=== PATIENT | female | born 1940 | race Caucasian/White ===

== ENCOUNTER 2017-04-10 20:02 | Emergency (ER) | payer MEDICARE, OTHER ==
[2017-04-10 21:48] LABS: BASOPHILS 0.3 % (0-2); EOSINOPHILS 0.3 % (0-7); HEMATOCRIT 43.6 % (36.0-48.0); HEMOGLOBIN 14.5 g/dL (12-16); IMMATURE GRANULOCYTES 0.3 % (0-5); LYMPHOCYTES 19.9 % (15-50); MCHC 33.3 g/dL (31.0-37.0); MCV 93.4 fL (80.0-100.0); MEAN PLATELET VOLUME 11.4 fL (7.4-10.4); MONOCYTES 8.6 % (2-11); NEUTROPHILS 70.6 % (40-80); PLATELET COUNT 169 10x3/uL (130-400); RBC 4.67 10x6/uL (4.00-5.40); RDW 11.8 % (11.5-14.5); WBC 7.4 10x3/uL (4.8-10.8)
[2017-04-10 22:01] LABS: ALBUMIN 3.6 g/dL (3.4-5.0); ANION GAP 15.5 mmol/L (8-16); BILIRUBIN - TOTAL 1.04 mg/dL (0.2-1.3); CALCIUM 9.5 mg/dL (8.5-10.1); CARBON DIOXIDE 25.8 mmol/L (21.0-32.0); CREATININE - SERUM 0.8 mg/dL (0.6-1.3); POTASSIUM - SERUM 3.3 mmol/L (3.5-5.1); PROTEIN - SERUM 7.3 g/dL (6.4-8.2)
[2017-05-12 11:09] VITALS: BMI 38.6
== END 2017-04-11 00:25 | disposition home or self-care (01) ==
LOC: D.ER 20:02
PROVIDERS: Emergency Medicine
DX: R11.10 Vomiting, unspecified (principal); R63.4 Abnormal weight loss; E87.6 Hypokalemia; E86.0 Dehydration

== ENCOUNTER 2017-04-21 08:51 | Inpatient (IN) | payer MEDICARE, OTHER ==
[~2017-04-21] VITALS: Ht 162.6 cm; Wt 119.2 kg
[2017-04-21 11:03] LABS: BASOPHILS 0.2 % (0-2); EOSINOPHILS 0.1 % (0-7); HEMATOCRIT 43.9 % (36.0-48.0); HEMOGLOBIN 14.8 g/dL (12-16); IMMATURE GRANULOCYTES 0.5 % (0-5); MCHC 33.7 g/dL (31.0-37.0); MEAN PLATELET VOLUME 10.8 fL (7.4-10.4); MONOCYTES 7.3 % (2-11); NEUTROPHILS 77.9 % (40-80); PLATELET COUNT 198 10x3/uL (130-400); RBC 4.77 10x6/uL (4.00-5.40); WBC 12.7 10x3/uL (4.8-10.8)
[2017-04-21 11:27] LABS: ALBUMIN 3.6 g/dL (3.4-5.0); ANION GAP 22.1 mmol/L (8-16); BILIRUBIN - TOTAL 1.19 mg/dL (0.2-1.3); CALCIUM 10.3 mg/dL (8.5-10.1); CARBON DIOXIDE 23.9 mmol/L (21.0-32.0); CREATININE - SERUM 0.9 mg/dL (0.6-1.3); PROTEIN - SERUM 7.8 g/dL (6.4-8.2)
[2017-04-21 14:39] LABS: APPEARANCE HAZY (CLEAR); BILIRUBIN NEGATIVE (NEGATIVE); COLOR YELLOW (YELLOW); GLUCOSE NEGATIVE (NEGATIVE); KETONE LARGE mg/dL (NEGATIVE); NITRITE NEGATIVE (NEGATIVE); PROTEIN NEGATIVE (NEGATIVE)
[2017-04-21 14:41] LABS: WHITE CELLS - URINE 0-5 /hpf (0-5)
[2017-04-21 14:42] LABS: BACTERIA MODERATE /hpf (NONE SEEN); RED CELLS - URINE NONE SEEN /hpf (0-5)
[2017-04-21 19:20] LABS: % SATURATION 22 % (15-55); IRON 50 ug/dl (35-150); TOTAL IRON BIND CAPACITY 224 ug/dl (260-445); UNSAT IRON BIND CAPACITY 174 ug/dl (150-375)
[2017-04-21 20:00] VITALS: BP 120/60
[2017-04-22] VITALS: BP 123/65
[2017-04-22 04:00] VITALS: BP 119/54
[2017-04-22 05:38] LABS: BASOPHILS 0.3 % (0-2); EOSINOPHILS 0.8 % (0-7); HEMATOCRIT 37.4 % (36.0-48.0); HEMOGLOBIN 12.3 g/dL (12-16); IMMATURE GRANULOCYTES 0.2 % (0-5); LYMPHOCYTES 32.1 % (15-50); MCH 30.8 pg (26.0-34.0); MCHC 32.9 g/dL (31.0-37.0); MCV 93.5 fL (80.0-100.0); MEAN PLATELET VOLUME 11.7 fL (7.4-10.4); MONOCYTES 10.1 % (2-11); NEUTROPHILS 56.5 % (40-80); RDW 12.1 % (11.5-14.5)
[2017-04-22 05:39] LABS: PLATELET COUNT 147 10x3/uL (130-400); WBC 5.9 10x3/uL (4.8-10.8)
[2017-04-22 05:41] LABS: INR 1.03 (0.85-1.17); PROTIME 13.3 SECONDS (11.6-15.0)
[2017-04-22 05:44] LABS: ALBUMIN 2.8 g/dL (3.4-5.0); ALKALINE PHOSPHATASE 68 U/L (46-116); ALT (SGPT) 26 U/L (10-68); AMYLASE - SERUM 19 U/L (25-115); CALC OSMOLALITY 270 mosm/kg (275-300); CALCIUM 8.5 mg/dL (8.5-10.1); CHLORIDE - SERUM 99 mmol/L (98-107); CREATININE - SERUM 0.7 mg/dL (0.6-1.3); GLUCOSE 77 mg/dL (74-106); LIPASE 89 U/L (73-393); PRE-ALBUMIN 11.2 mg/dL (18.0-35.7); PROTEIN - SERUM 5.9 g/dL (6.4-8.2); SODIUM 135 mmol/L (136-145); UREA NITROGEN 18 mg/dL (7-18); eGFR NON AFRICAN AMERICAN 86 mL/min (90-120)
[2017-04-22 05:53] LABS: POTASSIUM - SERUM 3.1 mmol/L (3.5-5.1)
[2017-04-22 08:16] VITALS: BP 129/70
[2017-04-22 12:33] VITALS: BP 144/84
[2017-04-22 14:18] VITALS: BMI 29.8
[2017-04-22 15:35] VITALS: BP 145/67
[2017-04-22 20:00] VITALS: BP 181/64
[2017-04-23] VITALS: BP 123/67
[2017-04-23 04:00] VITALS: BP 147/72
[2017-04-23 06:58] LABS: BASOPHILS 0.2 % (0-2); EOSINOPHILS 1.4 % (0-7); HEMATOCRIT 37.9 % (36.0-48.0); HEMOGLOBIN 12.5 g/dL (12-16); IMMATURE GRANULOCYTES 0.4 % (0-5); MCH 30.4 pg (26.0-34.0); MCV 92.2 fL (80.0-100.0); MONOCYTES 10.3 % (2-11); NEUTROPHILS 57.7 % (40-80); PLATELET COUNT 154 10x3/uL (130-400); RBC 4.11 10x6/uL (4.00-5.40); WBC 5.2 10x3/uL (4.8-10.8)
[2017-04-23 07:17] LABS: ALBUMIN 2.7 g/dL (3.4-5.0); ALKALINE PHOSPHATASE 69 U/L (46-116); ALT (SGPT) 24 U/L (10-68); BILIRUBIN - TOTAL 0.47 mg/dL (0.2-1.3); CALCIUM 8.2 mg/dL (8.5-10.1); CHLORIDE - SERUM 97 mmol/L (98-107); PROTEIN - SERUM 5.4 g/dL (6.4-8.2); SODIUM 133 mmol/L (136-145)
[2017-04-23 07:20] LABS: CALC OSMOLALITY 261 mosm/kg (275-300); CREATININE - SERUM 0.5 mg/dL (0.6-1.3); GLUCOSE 70 mg/dL (74-106); POTASSIUM - SERUM 3.5 mmol/L (3.5-5.1); UREA NITROGEN 8 mg/dL (7-18); eGFR NON AFRICAN AMERICAN > 90 mL/min (90-120)
[2017-04-23 08:00] VITALS: BP 142/74
[2017-04-23 08:21] LABS: FOLATE (FOLIC ACID) - SERUM 10.8 ng/mL (>3.0)
[2017-04-23 12:29] VITALS: BP 128/63
[2017-04-23 16:13] VITALS: BP 140/64
[2017-04-23 18:49] VITALS: BP 122/74
[2017-04-24 04:00] VITALS: BP 122/72
[2017-04-24 05:11] VITALS: BP 140/64; Ht 162.6 cm; Wt 119.2 kg
[2017-04-24 06:22] LABS: BASOPHILS 0.2 % (0-2); EOSINOPHILS 0.3 % (0-7); HEMATOCRIT 37.2 % (36.0-48.0); HEMOGLOBIN 12.5 g/dL (12-16); IMMATURE GRANULOCYTES 0.3 % (0-5); LYMPHOCYTES 16.6 % (15-50); MCH 30.8 pg (26.0-34.0); MCHC 33.6 g/dL (31.0-37.0); MCV 91.6 fL (80.0-100.0); MEAN PLATELET VOLUME 11.1 fL (7.4-10.4); MONOCYTES 11.7 % (2-11); NEUTROPHILS 70.9 % (40-80); PLATELET COUNT 160 10x3/uL (130-400); RBC 4.06 10x6/uL (4.00-5.40); WBC 5.8 10x3/uL (4.8-10.8)
[2017-04-24 06:31] LABS: ALBUMIN 2.5 g/dL (3.4-5.0); ALKALINE PHOSPHATASE 60 U/L (46-116); ALT (SGPT) 22 U/L (10-68); CALCIUM 8.4 mg/dL (8.5-10.1); CARBON DIOXIDE 24.6 mmol/L (21.0-32.0); CHLORIDE - SERUM 98 mmol/L (98-107); CREATININE - SERUM 0.6 mg/dL (0.6-1.3); GLUCOSE 79 mg/dL (74-106); MAGNESIUM - SERUM 1.6 mg/dL (1.8-2.4); PHOSPHOROUS 3.4 mg/dL (2.5-4.9); PROTEIN - SERUM 5.5 g/dL (6.4-8.2); SODIUM 136 mmol/L (136-145); eGFR NON AFRICAN AMERICAN > 90 mL/min (90-120)
[2017-04-24 06:32] LABS: CALC OSMOLALITY 267 mosm/kg (275-300); UREA NITROGEN 4 mg/dL (7-18)
[2017-04-24 09:38] VITALS: BP 134/71
[2017-04-24 11:52] VITALS: BP 123/71
[2017-04-24 16:41] VITALS: BP 147/85
[2017-04-24 20:00] VITALS: BP 144/72
[2017-04-25] VITALS: BP 118/72; BP 137/68
[2017-04-25 06:02] LABS: ALBUMIN 2.4 g/dL (3.4-5.0); ALKALINE PHOSPHATASE 59 U/L (46-116); BILIRUBIN - TOTAL 0.31 mg/dL (0.2-1.3); CALC OSMOLALITY 270 mosm/kg (275-300); CALCIUM 8.1 mg/dL (8.5-10.1); CHLORIDE - SERUM 100 mmol/L (98-107); CREATININE - SERUM 0.6 mg/dL (0.6-1.3); GLUCOSE 105 mg/dL (74-106); MAGNESIUM - SERUM 1.9 mg/dL (1.8-2.4); PROTEIN - SERUM 5.4 g/dL (6.4-8.2); SODIUM 137 mmol/L (136-145); UREA NITROGEN 4 mg/dL (7-18); eGFR NON AFRICAN AMERICAN > 90 mL/min (90-120)
[2017-04-25 06:03] LABS: ALT (SGPT) 7 U/L (10-68); PHOSPHOROUS 2.4 mg/dL (2.5-4.9)
[2017-04-25 06:16] LABS: BASOPHILS 0.1 % (0-2); EOSINOPHILS 1.6 % (0-7); HEMATOCRIT 34.8 % (36.0-48.0); HEMOGLOBIN 11.6 g/dL (12-16); IMMATURE GRANULOCYTES 0.4 % (0-5); LYMPHOCYTES 26.6 % (15-50); MCH 30.4 pg (26.0-34.0); MCHC 33.3 g/dL (31.0-37.0); MCV 91.1 fL (80.0-100.0); MEAN PLATELET VOLUME 11.1 fL (7.4-10.4); MONOCYTES 11.2 % (2-11); NEUTROPHILS 60.1 % (40-80); PLATELET COUNT 146 10x3/uL (130-400); RBC 3.82 10x6/uL (4.00-5.40); RDW 12.1 % (11.5-14.5); WBC 6.8 10x3/uL (4.8-10.8)
[2017-04-25 09:02] VITALS: BP 102/55
[2017-04-25 12:19] VITALS: BP 110/62
[2017-04-25 16:42] VITALS: BP 122/56
[2017-04-25 20:00] VITALS: BP 142/62
[2017-04-26] VITALS: BP 150/64
[2017-04-26 04:00] VITALS: BP 144/60
[2017-04-26 05:15] LABS: BASOPHILS 0.2 % (0-2); EOSINOPHILS 2.2 % (0-7); HEMATOCRIT 34.6 % (36.0-48.0); HEMOGLOBIN 11.5 g/dL (12-16); IMMATURE GRANULOCYTES 0.4 % (0-5); LYMPHOCYTES 30.3 % (15-50); MCH 30.5 pg (26.0-34.0); MCHC 33.2 g/dL (31.0-37.0); MCV 91.8 fL (80.0-100.0); MEAN PLATELET VOLUME 10.4 fL (7.4-10.4); NEUTROPHILS 52.9 % (40-80); PLATELET COUNT 130 10x3/uL (130-400); RBC 3.77 10x6/uL (4.00-5.40); RDW 12.2 % (11.5-14.5); WBC 5.4 10x3/uL (4.8-10.8)
[2017-04-26 05:59] LABS: ALBUMIN 2.2 g/dL (3.4-5.0); ALKALINE PHOSPHATASE 53 U/L (46-116); BILIRUBIN - TOTAL 0.21 mg/dL (0.2-1.3); CALC OSMOLALITY 274 mosm/kg (275-300); CALCIUM 7.9 mg/dL (8.5-10.1); CARBON DIOXIDE 30.5 mmol/L (21.0-32.0); CHLORIDE - SERUM 103 mmol/L (98-107); CREATININE - SERUM 0.6 mg/dL (0.6-1.3); GLUCOSE 98 mg/dL (74-106); MAGNESIUM - SERUM 1.5 mg/dL (1.8-2.4); POTASSIUM - SERUM 3.2 mmol/L (3.5-5.1); SODIUM 139 mmol/L (136-145); UREA NITROGEN 4 mg/dL (7-18); eGFR NON AFRICAN AMERICAN > 90 mL/min (90-120)
[2017-04-26 06:02] LABS: ALT (SGPT) 16 U/L (10-68)
[2017-04-26 08:28] VITALS: BP 142/82
[2017-04-26 13:18] VITALS: BP 160/83
[2017-04-26 15:18] VITALS: BP 146/82
[2017-04-27] VITALS: BP 112/67
[2017-04-27 04:00] VITALS: BP 120/68
[2017-04-27 06:14] LABS: HEPATITIS C ANTIBODY <0.1 (0.0-0.9)
[2017-04-27 07:00] LABS: BASOPHILS 0.4 % (0-2); EOSINOPHILS 2.1 % (0-7); HEMOGLOBIN 11.2 g/dL (12-16); IMMATURE GRANULOCYTES 0.7 % (0-5); LYMPHOCYTES 29.3 % (15-50); MCH 30.6 pg (26.0-34.0); MCHC 32.9 g/dL (31.0-37.0); MCV 92.9 fL (80.0-100.0); MEAN PLATELET VOLUME 10.8 fL (7.4-10.4); NEUTROPHILS 53.5 % (40-80); PLATELET COUNT 144 10x3/uL (130-400); RBC 3.66 10x6/uL (4.00-5.40); RDW 12.3 % (11.5-14.5); WBC 5.6 10x3/uL (4.8-10.8)
[2017-04-27 07:29] LABS: ALBUMIN 2.3 g/dL (3.4-5.0); ALKALINE PHOSPHATASE 57 U/L (46-116); BILIRUBIN - TOTAL 0.22 mg/dL (0.2-1.3); CARBON DIOXIDE 29.7 mmol/L (21.0-32.0); CHLORIDE - SERUM 104 mmol/L (98-107); CREATININE - SERUM 0.7 mg/dL (0.6-1.3); GLUCOSE 94 mg/dL (74-106); MAGNESIUM - SERUM 1.8 mg/dL (1.8-2.4); PHOSPHOROUS 3.1 mg/dL (2.5-4.9); PROTEIN - SERUM 5.1 g/dL (6.4-8.2); SODIUM 138 mmol/L (136-145); eGFR NON AFRICAN AMERICAN 86 mL/min (90-120)
[2017-04-27 07:43] LABS: ALT (SGPT) 24 U/L (10-68); CALC OSMOLALITY 273 mosm/kg (275-300); POTASSIUM - SERUM 3.7 mmol/L (3.5-5.1); UREA NITROGEN 6 mg/dL (7-18)
[2017-04-27 09:38] VITALS: BP 121/75
[2017-04-27 13:11] VITALS: BP 128/73
[2017-04-27 16:23] VITALS: BP 141/77
[2017-04-28] VITALS (65 sets, daily range): BP systolic 59–166; BP diastolic 27–98
[2017-04-28 03:49] LABS: BASOPHILS 0.2 % (0-2); EOSINOPHILS 0.3 % (0-7); HEMATOCRIT 37.3 % (36.0-48.0); HEMOGLOBIN 12.4 g/dL (12-16); IMMATURE GRANULOCYTES 0.3 % (0-5); LYMPHOCYTES 13.3 % (15-50); MCH 30.4 pg (26.0-34.0); MCHC 33.2 g/dL (31.0-37.0); MCV 91.4 fL (80.0-100.0); MEAN PLATELET VOLUME 10.9 fL (7.4-10.4); MONOCYTES 2.9 % (2-11); PLATELET COUNT 160 10x3/uL (130-400); RBC 4.08 10x6/uL (4.00-5.40); RDW 14.1 % (11.5-14.5); WBC 6.6 10x3/uL (4.8-10.8)
[2017-04-28 04:16] LABS: CALCIUM 7.8 mg/dL (8.5-10.1); CHLORIDE - SERUM 102 mmol/L (98-107); CREATININE - SERUM 0.7 mg/dL (0.6-1.3); PHOSPHOROUS 3.3 mg/dL (2.5-4.9); SODIUM 137 mmol/L (136-145); UREA NITROGEN 7 mg/dL (7-18); eGFR NON AFRICAN AMERICAN 86 mL/min (90-120)
[2017-04-28 04:17] LABS: CALC OSMOLALITY 282 mosm/kg (275-300); GLUCOSE 301 mg/dL (74-106); MAGNESIUM - SERUM 1.2 mg/dL (1.8-2.4)
[2017-04-28 04:18] LABS: CARBON DIOXIDE 20.5 mmol/L (21.0-32.0); POTASSIUM - SERUM 2.8 mmol/L (3.5-5.1)
[2017-04-28 14:43] LABS: BASOPHILS 0.3 % (0-2); EOSINOPHILS 0.3 % (0-7); HEMATOCRIT 33.1 % (36.0-48.0); IMMATURE GRANULOCYTES 0.3 % (0-5); LYMPHOCYTES 11.4 % (15-50); MCH 30.2 pg (26.0-34.0); MCHC 33.2 g/dL (31.0-37.0); MCV 90.9 fL (80.0-100.0); MEAN PLATELET VOLUME 11.1 fL (7.4-10.4); NEUTROPHILS 77.7 % (40-80); PLATELET COUNT 188 10x3/uL (130-400); RBC 3.64 10x6/uL (4.00-5.40); RDW 15.1 % (11.5-14.5); WBC 6.4 10x3/uL (4.8-10.8)
[2017-04-29] VITALS (88 sets, daily range): BP systolic 63–120; BP diastolic 39–523
[2017-04-29 03:36] LABS: BASOPHILS 0.2 % (0-2); EOSINOPHILS 1.1 % (0-7); HEMATOCRIT 33.3 % (36.0-48.0); HEMOGLOBIN 11.1 g/dL (12-16); IMMATURE GRANULOCYTES 0.4 % (0-5); LYMPHOCYTES 18.5 % (15-50); MCH 30.5 pg (26.0-34.0); MCHC 33.3 g/dL (31.0-37.0); MCV 91.5 fL (80.0-100.0); MEAN PLATELET VOLUME 10.7 fL (7.4-10.4); MONOCYTES 13.8 % (2-11); PLATELET COUNT 171 10x3/uL (130-400); RBC 3.64 10x6/uL (4.00-5.40); RDW 14.8 % (11.5-14.5)
[2017-04-29 03:41] LABS: WBC 9.5 10x3/uL (4.8-10.8)
[2017-04-29 03:46] LABS: ALBUMIN 2.3 g/dL (3.4-5.0); ANION GAP 11.2 mmol/L (8-16); BILIRUBIN - TOTAL 0.99 mg/dL (0.2-1.3); CALCIUM 7.4 mg/dL (8.5-10.1); CARBON DIOXIDE 22.8 mmol/L (21.0-32.0); MAGNESIUM - SERUM 1.4 mg/dL (1.8-2.4); PROTEIN - SERUM 4.7 g/dL (6.4-8.2)
[2017-04-29 03:49] LABS: CREATININE - SERUM 0.9 mg/dL (0.6-1.3)
[2017-04-30] VITALS (86 sets, daily range): BP systolic 56–172; BP diastolic 25–131
[2017-04-30 04:37] LABS: BASOPHILS 0.1 % (0-2); EOSINOPHILS 1.7 % (0-7); HEMOGLOBIN 9.3 g/dL (12-16); IMMATURE GRANULOCYTES 0.5 % (0-5); LYMPHOCYTES 14.9 % (15-50); MCH 30.3 pg (26.0-34.0); MCHC 33.2 g/dL (31.0-37.0); MCV 91.2 fL (80.0-100.0); MEAN PLATELET VOLUME 10.7 fL (7.4-10.4); MONOCYTES 11.9 % (2-11); NEUTROPHILS 70.9 % (40-80); PLATELET COUNT 141 10x3/uL (130-400); RBC 3.07 10x6/uL (4.00-5.40); RDW 14.3 % (11.5-14.5); WBC 7.7 10x3/uL (4.8-10.8)
[2017-04-30 04:48] LABS: ALBUMIN 1.9 g/dL (3.4-5.0); ALKALINE PHOSPHATASE 47 U/L (46-116); ALT (SGPT) 27 U/L (10-68); BILIRUBIN - TOTAL 0.78 mg/dL (0.2-1.3); CALC OSMOLALITY 272 mosm/kg (275-300); CALCIUM 7.3 mg/dL (8.5-10.1); CARBON DIOXIDE 22.6 mmol/L (21.0-32.0); CHLORIDE - SERUM 105 mmol/L (98-107); CREATININE - SERUM 0.7 mg/dL (0.6-1.3); GLUCOSE 134 mg/dL (74-106); PHOSPHOROUS 2.3 mg/dL (2.5-4.9); POTASSIUM - SERUM 4.3 mmol/L (3.5-5.1); PROTEIN - SERUM 4.4 g/dL (6.4-8.2); SODIUM 135 mmol/L (136-145); UREA NITROGEN 15 mg/dL (7-18); eGFR NON AFRICAN AMERICAN 86 mL/min (90-120)
[2017-04-30 04:50] LABS: MAGNESIUM - SERUM 1.9 mg/dL (1.8-2.4)
[2017-05-01] VITALS (93 sets, daily range): BP systolic 84–134; BP diastolic 38–94
[2017-05-01 04:41] LABS: BASOPHILS 0.1 % (0-2); EOSINOPHILS 1.7 % (0-7); HEMATOCRIT 26.3 % (36.0-48.0); HEMOGLOBIN 8.6 g/dL (12-16); IMMATURE GRANULOCYTES 0.3 % (0-5); LYMPHOCYTES 13.2 % (15-50); MCH 30.1 pg (26.0-34.0); MCHC 32.7 g/dL (31.0-37.0); MEAN PLATELET VOLUME 10.2 fL (7.4-10.4); MONOCYTES 11.5 % (2-11); NEUTROPHILS 73.2 % (40-80); PLATELET COUNT 134 10x3/uL (130-400); RBC 2.86 10x6/uL (4.00-5.40); RDW 14.5 % (11.5-14.5); WBC 7.6 10x3/uL (4.8-10.8)
[2017-05-01 04:55] LABS: ALBUMIN 1.8 g/dL (3.4-5.0); ALKALINE PHOSPHATASE 55 U/L (46-116); ALT (SGPT) 20 U/L (10-68); BILIRUBIN - TOTAL 0.56 mg/dL (0.2-1.3); CALC OSMOLALITY 274 mosm/kg (275-300); CALCIUM 7.2 mg/dL (8.5-10.1); CARBON DIOXIDE 21.3 mmol/L (21.0-32.0); CHLORIDE - SERUM 108 mmol/L (98-107); CREATININE - SERUM 0.5 mg/dL (0.6-1.3); GLUCOSE 119 mg/dL (74-106); MAGNESIUM - SERUM 1.8 mg/dL (1.8-2.4); PHOSPHOROUS 3.1 mg/dL (2.5-4.9); POTASSIUM - SERUM 4.2 mmol/L (3.5-5.1); PROTEIN - SERUM 4.5 g/dL (6.4-8.2); SODIUM 137 mmol/L (136-145); UREA NITROGEN 13 mg/dL (7-18); eGFR NON AFRICAN AMERICAN > 90 mL/min (90-120)
[2017-05-02] VITALS (92 sets, daily range): BP systolic 83–143; BP diastolic 42–86
[2017-05-02 05:07] LABS: BASOPHILS 0.2 % (0-2); EOSINOPHILS 2.3 % (0-7); HEMOGLOBIN 8.3 g/dL (12-16); IMMATURE GRANULOCYTES 0.5 % (0-5); LYMPHOCYTES 21.5 % (15-50); MCH 30.6 pg (26.0-34.0); MCHC 33.2 g/dL (31.0-37.0); MCV 92.3 fL (80.0-100.0); MEAN PLATELET VOLUME 10.8 fL (7.4-10.4); MONOCYTES 9.7 % (2-11); NEUTROPHILS 65.8 % (40-80); PLATELET COUNT 166 10x3/uL (130-400); RBC 2.71 10x6/uL (4.00-5.40); RDW 14.2 % (11.5-14.5)
[2017-05-02 05:18] LABS: CALC OSMOLALITY 274 mosm/kg (275-300); CALCIUM 7.4 mg/dL (8.5-10.1); CARBON DIOXIDE 23.8 mmol/L (21.0-32.0); CHLORIDE - SERUM 110 mmol/L (98-107); CREATININE - SERUM 0.7 mg/dL (0.6-1.3); GLUCOSE 104 mg/dL (74-106); POTASSIUM - SERUM 4.3 mmol/L (3.5-5.1); SODIUM 138 mmol/L (136-145); UREA NITROGEN 10 mg/dL (7-18); eGFR NON AFRICAN AMERICAN 86 mL/min (90-120)
[2017-05-03] VITALS (53 sets, daily range): BP systolic 58–150; BP diastolic 36–94
[2017-05-03 04:42] LABS: BASOPHILS 0.2 % (0-2); EOSINOPHILS 1.8 % (0-7); HEMATOCRIT 25.2 % (36.0-48.0); HEMOGLOBIN 8.1 g/dL (12-16); IMMATURE GRANULOCYTES 0.5 % (0-5); LYMPHOCYTES 20.7 % (15-50); MCH 29.8 pg (26.0-34.0); MCHC 32.1 g/dL (31.0-37.0); MCV 92.6 fL (80.0-100.0); MEAN PLATELET VOLUME 10.1 fL (7.4-10.4); MONOCYTES 9.5 % (2-11); NEUTROPHILS 67.3 % (40-80); PLATELET COUNT 192 10x3/uL (130-400); RBC 2.72 10x6/uL (4.00-5.40); RDW 14.2 % (11.5-14.5); WBC 5.6 10x3/uL (4.8-10.8)
[2017-05-03 04:57] LABS: ALBUMIN 1.5 g/dL (3.4-5.0); ALKALINE PHOSPHATASE 57 U/L (46-116); ALT (SGPT) 14 U/L (10-68); BILIRUBIN - TOTAL 0.36 mg/dL (0.2-1.3); CARBON DIOXIDE 24.2 mmol/L (21.0-32.0); CHLORIDE - SERUM 110 mmol/L (98-107); CREATININE - SERUM 0.6 mg/dL (0.6-1.3); GLUCOSE 107 mg/dL (74-106); MAGNESIUM - SERUM 1.7 mg/dL (1.8-2.4); PHOSPHOROUS 3.1 mg/dL (2.5-4.9); POTASSIUM - SERUM 3.8 mmol/L (3.5-5.1); PROTEIN - SERUM 4.3 g/dL (6.4-8.2); SODIUM 139 mmol/L (136-145); eGFR NON AFRICAN AMERICAN > 90 mL/min (90-120)
[2017-05-03 04:58] LABS: CALC OSMOLALITY 275 mosm/kg (275-300); CALCIUM 6.9 mg/dL (8.5-10.1); UREA NITROGEN 7 mg/dL (7-18)
[2017-05-04] VITALS (66 sets, daily range): BP systolic 64–159; BP diastolic 41–97
[2017-05-04 05:00] LABS: BASOPHILS 0.3 % (0-2); EOSINOPHILS 1.9 % (0-7); HEMATOCRIT 27.1 % (36.0-48.0); HEMOGLOBIN 8.8 g/dL (12-16); IMMATURE GRANULOCYTES 0.7 % (0-5); LYMPHOCYTES 16.9 % (15-50); MCH 29.8 pg (26.0-34.0); MCHC 32.5 g/dL (31.0-37.0); MCV 91.9 fL (80.0-100.0); MONOCYTES 7.1 % (2-11); NEUTROPHILS 73.1 % (40-80); PLATELET COUNT 222 10x3/uL (130-400); RBC 2.95 10x6/uL (4.00-5.40); RDW 14.3 % (11.5-14.5); WBC 6.7 10x3/uL (4.8-10.8)
[2017-05-04 05:16] LABS: CALC OSMOLALITY 274 mosm/kg (275-300); CHLORIDE - SERUM 109 mmol/L (98-107); CREATININE - SERUM 0.5 mg/dL (0.6-1.3); GLUCOSE 121 mg/dL (74-106); MAGNESIUM - SERUM 1.9 mg/dL (1.8-2.4); POTASSIUM - SERUM 3.7 mmol/L (3.5-5.1); SODIUM 138 mmol/L (136-145); UREA NITROGEN 6 mg/dL (7-18); eGFR NON AFRICAN AMERICAN > 90 mL/min (90-120)
[2017-05-04 05:26] LABS: CALCIUM 6.9 mg/dL (8.5-10.1)
--- NOTE | 2017-05-04 09:40 | CN ---
PATIENT NAME:NISH VIRAMONTES MEDICAL RECORD: [id number] : 40 LOCATION:[facility]8 ADMIT DATE: 04/21/17 ACCOUNT: [id number] CONSULTING PHYSICIAN: MINA CHARLES MD REFERRING PHYSICIAN: KIMMY VERGARA DO DATE OF CONSULTATION: 04/23/2017 This is a consultation note addendum. CHIEF COMPLAINT: Nausea and vomiting. HISTORY OF PRESENT ILLNESS: I did not have a chance to interview the patient. The first time I saw her, she was undergoing endoscopy. The history is obtained from Dr. Montaño. The patient reportedly has been to the Emergency Room number of times. She has been told that she is constipated. She has undergone some type of bariatric procedure in the past. I interviewed her daughter. I am not sure when the bariatric procedure was or what kind it was. They think it was an open gastric bypass. It occurred probably back in the 1970s. There was some type of revisionary procedure. The patient has become increasingly weak. She has almost continuous nausea and vomiting. Her prealbumin is low. We are going to start her on TPN and have a central line placed. She had an upper endoscopy and I was present for the upper endoscopy today. She had some very bizarre appearing anatomy and has a lot of small bowel diverticula. I think she is going to require an exploratory operation. It appeared from the study today that she has a distal small bowel obstruction. She also has bile gastritis and I think I am going to have to take down the gastrojejunostomy and perform a revisionary procedure likely a Olivier-en-Y type of procedure in order to stop the bile gastritis. This is a consultation note addendum. I am really unable to obtain aggravating or alleviating factors as the patient is still under general anesthesia. For the typed portion of the consult note, please see the chart. This would include the past medical and surgical history, allergies, current medications, social history, and family history. REVIEW OF SYSTEMS: Unobtainable from the patient as she is under general anesthesia at this time. PHYSICAL EXAMINATION: GENERAL: The physical examination is somewhat limited as the patient is under general anesthesia at this time, the patient appears acutely ill. VITAL SIGNS: Reviewed. The entire physical examination was performed in the presence of a female nurse. EARS: External ears appear normal. EYES: Unable to assess as her eyes are closed. NECK: Trachea is midline. PULMONARY: She is being mechanically ventilated. ABDOMEN: Unable to assess abdominal tenderness due to general anesthesia. EXTREMITIES: No peripheral cyanosis. INTEGUMENT: There is an intertriginous rash. BACK: Mild thoracic kyphosis. LYMPHATICS: No lymphangitic streaking of the exposed extremities. PSYCHIATRIC: Unable to assess due to the general anesthesia. CONSULT REPORT [id number] NISH VIRAMONTES NEUROLOGIC: Unable to assess due to the general anesthesia. IMPRESSION: Persistent nausea and vomiting in a patient who has an unusual small bowel anatomy and likely is going to require an exploratory laparotomy due to what appears to be a distal partial small-bowel obstruction. PLAN: Central venous line. TPN. Check electrolytes. Operation next week. TRANSINT:[id number] Voice Confirmation ID: [id number] DOCUMENT ID: [id number] MINA CHARLES MD at 0940 CC: [id number] DICTATION DATE: 04/23/171814 LOAD MANAGER: 04/23/17 4486 ADM IN [address] [address] [place] [address]
--- NOTE | 2017-05-04 09:40 | OP ---
PATIENT NAME: NISH VIRAMONTES MEDICAL RECORD: [id number] :40 LOCATION:D.[facility] D.2308 ADMISSION DATE:04/21/17 SURGEON: MINA CHARLES MD DATE OF OPERATION: 04/27/2017 PREOPERATIVE DIAGNOSES: 1. Small-bowel obstruction, partial. 2. Clostridium difficile colitis. 3. Bile gastritis. 4. History of gastric bypass with revision. POSTOPERATIVE DIAGNOSES: 1. Small-bowel obstruction, partial. 2. Clostridium difficile colitis. 3. Bile gastritis. 4. History of gastric bypass with revision. 5. Extensive intra-abdominal adhesions. PROCEDURE: 1. Exploratory laparotomy. 2. Extensive adhesiolysis. The adhesiolysis took 2 hours and 15 minutes. SURGEON: Mina Charles MD CUSTOM FURRIER: None. BLOOD LOSS: 700 cc. ANESTHESIA: General. DRAINS: Times 1 (19-Australian round Sudheer drain). OPERATIVE FINDINGS: I wanted to take down the afferent limb to the patient's apparent Billroth II gastrojejunostomy. This was to help prevent bile gastritis. The scarring in the left upper quadrant was impressive. The liver was scarred down on to the stomach, both the functionalized and defunctionalized portions of the stomach. 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 The anatomy was somewhat difficult to delineate. I was able to perform adhesiolysis and relieve the bowel obstruction; however, I was unable to takedown this afferent limb. The patient started to become coagulopathic and it was time to discontinue the operation for fear that should we continue she would become even more hypotensive and more coagulopathic. She did develop significant hypotension toward the end of the operation and was on pressors. The operation started in the late evening hours of 04/27/2017 and continued into the bench manager hours of 04/28/2017. OPERATIVE COURSE: The patient was conveyed to the operating room electively on 04/27/2017. General anesthesia was induced by the anesthesia staff. The abdomen was sterilely prepped and draped. I excised a portion of the patient's midline scar. I dissected down to the midline fascia, which was incised widely. A Bookwalter retractor was placed. Extensive adhesiolysis was undertaken. Most of the adhesions were grade I or grade II adhesions. I lysed all the adhesions in the lower abdomen in the left side of the abdomen as well as the right side. The spleen was undamaged during the procedure. I dissected it down up under the left lateral segment of the liver, which was really stuck down OPERATIVE REPORT [id number] NISH VIRAMONTES quite firmly to the gastric remnant, meaning the defunctionalized portions of the stomach as well as what appeared to be the dilated gastric pouch. I was able to identify the jejunum exiting from the gastric pouch. It appeared that there was a small bowel anastomosis; however, it was less than a foot distal to the stomach. I felt uncomfortable taking down the patient's Olivier limb. Preoperatively, we had discussed a couple of options. I told her that if I found that she had a gastric bypass would she want me to take it down and she said no. I asked her if she did not have a gastric bypass would she elects for me to develop one for her and she said no. I attempted hemostasis, but this was difficult due to the patient's coagulopathy. I irrigated and aspirated. There was some oozing in the left upper quadrant. I ran the small bowel in its entirety twice. I noted no full thickness small bowel injury. There was a small seromyotomy on the stomach and this was oversewn with a running 3-0 Vicryl suture. A 19-Australian round Sudheer drain was brought through a stab incision in the left lower quadrant. It was placed under the left diaphragm. The drain was sutured to skin with a 2-0 nylon. The midline fascia was closed with a running horizontal mattress looped #1 PDS. [place] were used for the skin closure. A sterile dressing was applied. The patient was then conveyed to the intensive care unit in critical condition on the mechanical ventilator. I went out and spoke to the family. TRANSINT:[id number] Voice Confirmation ID: [id number] DOCUMENT ID: [id number] MINA CHARLES MD at 0940 CC: [id number] DICTATION DATE: 04/28/17 0854 DRAFTER CHIEF DESIGN: 04/28/17 1117 ADM IN [facility] [address] [place] [address]
[2017-05-05] VITALS (16 sets, daily range): BP systolic 95–148; BP diastolic 49–76
[2017-05-05 04:54] LABS: BASOPHILS 0.2 % (0-2); EOSINOPHILS 1.7 % (0-7); HEMATOCRIT 26.2 % (36.0-48.0); HEMOGLOBIN 8.6 g/dL (12-16); LYMPHOCYTES 13.7 % (15-50); MCH 29.9 pg (26.0-34.0); MCHC 32.8 g/dL (31.0-37.0); MONOCYTES 6.7 % (2-11); NEUTROPHILS 76.7 % (40-80); PLATELET COUNT 203 10x3/uL (130-400); RBC 2.88 10x6/uL (4.00-5.40); WBC 5.3 10x3/uL (4.8-10.8)
[2017-05-05 05:07] LABS: CALC OSMOLALITY 272 mosm/kg (275-300); CALCIUM 7.1 mg/dL (8.5-10.1); CARBON DIOXIDE 24.9 mmol/L (21.0-32.0); CHLORIDE - SERUM 107 mmol/L (98-107); CREATININE - SERUM 0.4 mg/dL (0.6-1.3); GLUCOSE 101 mg/dL (74-106); MAGNESIUM - SERUM 1.7 mg/dL (1.8-2.4); POTASSIUM - SERUM 3.9 mmol/L (3.5-5.1); SODIUM 138 mmol/L (136-145); eGFR NON AFRICAN AMERICAN > 90 mL/min (90-120)
[2017-05-05 05:09] LABS: UREA NITROGEN 4 mg/dL (7-18)
[2017-05-06 01:20] VITALS: BP 118/88
[2017-05-06 05:27] LABS: BASOPHILS 0.4 % (0-2); EOSINOPHILS 3.1 % (0-7); HEMATOCRIT 30.6 % (36.0-48.0); HEMOGLOBIN 10.2 g/dL (12-16); IMMATURE GRANULOCYTES 0.7 % (0-5); LYMPHOCYTES 16.8 % (15-50); MCH 30.4 pg (26.0-34.0); MCHC 33.3 g/dL (31.0-37.0); MCV 91.3 fL (80.0-100.0); MEAN PLATELET VOLUME 10.1 fL (7.4-10.4); MONOCYTES 6.4 % (2-11); NEUTROPHILS 72.6 % (40-80); RBC 3.35 10x6/uL (4.00-5.40); RDW 14.4 % (11.5-14.5); WBC 5.5 10x3/uL (4.8-10.8)
[2017-05-06 05:35] LABS: PLATELET COUNT 252 10x3/uL (130-400)
[2017-05-06 05:45] LABS: CALC OSMOLALITY 268 mosm/kg (275-300); CALCIUM 7.6 mg/dL (8.5-10.1); CARBON DIOXIDE 26.8 mmol/L (21.0-32.0); CHLORIDE - SERUM 104 mmol/L (98-107); CREATININE - SERUM 0.5 mg/dL (0.6-1.3); GLUCOSE 99 mg/dL (74-106); PHOSPHOROUS 3.7 mg/dL (2.5-4.9); POTASSIUM - SERUM 4.3 mmol/L (3.5-5.1); SODIUM 136 mmol/L (136-145); UREA NITROGEN 3 mg/dL (7-18); eGFR NON AFRICAN AMERICAN > 90 mL/min (90-120)
[2017-05-06 05:48] VITALS: BP 120/80
[2017-05-06 09:42] VITALS: BP 120/73
[2017-05-06 13:05] VITALS: BP 123/74
[2017-05-06 16:00] VITALS: BP 138/68
[2017-05-06 21:20] VITALS: BP 161/91
[2017-05-07 00:56] VITALS: BP 158/90
[2017-05-07] MEDS ORDERED: GLYCOLAX527 GM PO (02:56)
[2017-05-07] MEDS ORDERED: GABAPENTIN100 MG PO (02:56)
[2017-05-07] MEDS ORDERED: LEVOTHYROXINE50 MCG PO (02:56)
[2017-05-07] MEDS ORDERED: ZOFRAN ODT4 MG/UDTAB PO (02:56)
[2017-05-07] MEDS ORDERED: PEPCID40 MG PO (02:58)
[2017-05-07] MEDS ORDERED: KLOR-CON M2020 MEQ PO (02:58)
[2017-05-07] MEDS ORDERED: PROZAC20 MG PO (02:59)
[2017-05-07] MEDS ORDERED: TOPAMAX25 MG PO (02:59)
[2017-05-07 04:52] VITALS: BP 167/78
[2017-05-07 06:31] LABS: BASOPHILS 0.4 % (0-2); EOSINOPHILS 3.4 % (0-7); HEMATOCRIT 27.7 % (36.0-48.0); HEMOGLOBIN 9.2 g/dL (12-16); IMMATURE GRANULOCYTES 0.9 % (0-5); LYMPHOCYTES 19.2 % (15-50); MCH 30.5 pg (26.0-34.0); MCHC 33.2 g/dL (31.0-37.0); MCV 91.7 fL (80.0-100.0); MEAN PLATELET VOLUME 10.2 fL (7.4-10.4); MONOCYTES 8.5 % (2-11); NEUTROPHILS 67.6 % (40-80); PLATELET COUNT 269 10x3/uL (130-400); RBC 3.02 10x6/uL (4.00-5.40); RDW 14.5 % (11.5-14.5); WBC 5.3 10x3/uL (4.8-10.8)
[2017-05-07 06:50] LABS: CALC OSMOLALITY 268 mosm/kg (275-300); CALCIUM 7.8 mg/dL (8.5-10.1); CARBON DIOXIDE 27.4 mmol/L (21.0-32.0); CHLORIDE - SERUM 104 mmol/L (98-107); CREATININE - SERUM 0.6 mg/dL (0.6-1.3); GLUCOSE 92 mg/dL (74-106); MAGNESIUM - SERUM 1.8 mg/dL (1.8-2.4); POTASSIUM - SERUM 4.5 mmol/L (3.5-5.1); SODIUM 136 mmol/L (136-145); UREA NITROGEN 3 mg/dL (7-18); eGFR NON AFRICAN AMERICAN > 90 mL/min (90-120)
[2017-05-07 08:36] VITALS: BP 148/80
[2017-05-07 12:14] VITALS: BP 114/77
[2017-05-07 15:56] VITALS: BP 146/86
[2017-05-07 20:00] VITALS: BP 160/93
[2017-05-08] VITALS: BP 136/55
[2017-05-08 04:00] VITALS: BP 155/75
[2017-05-08 06:56] LABS: BASOPHILS 0.2 % (0-2); EOSINOPHILS 3.7 % (0-7); HEMATOCRIT 28.1 % (36.0-48.0); HEMOGLOBIN 9.3 g/dL (12-16); IMMATURE GRANULOCYTES 0.7 % (0-5); MCH 30.5 pg (26.0-34.0); MCHC 33.1 g/dL (31.0-37.0); MCV 92.1 fL (80.0-100.0); NEUTROPHILS 67.4 % (40-80); PLATELET COUNT 281 10x3/uL (130-400); RBC 3.05 10x6/uL (4.00-5.40); RDW 14.5 % (11.5-14.5); WBC 6.1 10x3/uL (4.8-10.8)
[2017-05-08 07:30] LABS: CALC OSMOLALITY 270 mosm/kg (275-300); CALCIUM 7.5 mg/dL (8.5-10.1); CARBON DIOXIDE 27.4 mmol/L (21.0-32.0); CHLORIDE - SERUM 103 mmol/L (98-107); CREATININE - SERUM 0.5 mg/dL (0.6-1.3); GLUCOSE 90 mg/dL (74-106); MAGNESIUM - SERUM 1.7 mg/dL (1.8-2.4); PHOSPHOROUS 3.9 mg/dL (2.5-4.9); POTASSIUM - SERUM 4.5 mmol/L (3.5-5.1); SODIUM 137 mmol/L (136-145); eGFR NON AFRICAN AMERICAN > 90 mL/min (90-120)
[2017-05-08 07:31] LABS: UREA NITROGEN 4 mg/dL (7-18)
[2017-05-08 10:10] VITALS: BP 112/73
[2017-05-08 13:39] VITALS: BP 114/74
[2017-05-08 16:51] VITALS: BP 116/72
[2017-05-08 20:00] VITALS: BP 158/82
[2017-05-09] VITALS: BP 140/79; BP 148/90
[2017-05-09 04:00] VITALS: BP 146/83
[2017-05-09 06:15] LABS: BASOPHILS 0.4 % (0-2); EOSINOPHILS 3.9 % (0-7); IMMATURE GRANULOCYTES 0.9 % (0-5); LYMPHOCYTES 17.7 % (15-50); MCH 30.2 pg (26.0-34.0); MCHC 32.6 g/dL (31.0-37.0); MCV 92.5 fL (80.0-100.0); MEAN PLATELET VOLUME 10.2 fL (7.4-10.4); NEUTROPHILS 68.1 % (40-80); PLATELET COUNT 238 10x3/uL (130-400); RDW 14.6 % (11.5-14.5); WBC 4.6 10x3/uL (4.8-10.8)
[2017-05-09 06:17] LABS: HEMATOCRIT 35.9 % (36.0-48.0); HEMOGLOBIN 11.7 g/dL (12-16); RBC 3.88 10x6/uL (4.00-5.40)
[2017-05-09 06:44] LABS: CALC OSMOLALITY 269 mosm/kg (275-300); CALCIUM 7.9 mg/dL (8.5-10.1); CARBON DIOXIDE 31.8 mmol/L (21.0-32.0); CHLORIDE - SERUM 104 mmol/L (98-107); GLUCOSE 87 mg/dL (74-106); MAGNESIUM - SERUM 1.8 mg/dL (1.8-2.4); PHOSPHOROUS 4.5 mg/dL (2.5-4.9); POTASSIUM - SERUM 4.6 mmol/L (3.5-5.1); SODIUM 137 mmol/L (136-145); UREA NITROGEN 4 mg/dL (7-18); eGFR NON AFRICAN AMERICAN 86 mL/min (90-120)
[2017-05-09 06:46] LABS: CREATININE - SERUM 0.7 mg/dL (0.6-1.3)
[2017-05-09 08:31] VITALS: BP 126/67
[2017-05-09 11:47] VITALS: BP 113/78
[2017-05-09 15:51] VITALS: BP 120/74
[2017-05-09 20:00] VITALS: BP 140/79; BP 143/79
[2017-05-10] VITALS: BP 143/79
[2017-05-10 04:00] VITALS: BP 147/78
[2017-05-10 05:41] LABS: BASOPHILS 1.3 % (0-2); IMMATURE GRANULOCYTES 0.7 % (0-5); LYMPHOCYTES 25.2 % (15-50); MCH 30.3 pg (26.0-34.0); MCHC 32.6 g/dL (31.0-37.0); MCV 92.9 fL (80.0-100.0); MONOCYTES 8.5 % (2-11); NEUTROPHILS 60.3 % (40-80); RDW 14.9 % (11.5-14.5); WBC 5.6 10x3/uL (4.8-10.8)
[2017-05-10 05:53] LABS: HEMATOCRIT 27.3 % (36.0-48.0); HEMOGLOBIN 8.9 g/dL (12-16); PLATELET COUNT 313 10x3/uL (130-400); RBC 2.94 10x6/uL (4.00-5.40)
[2017-05-10 06:03] LABS: CALC OSMOLALITY 274 mosm/kg (275-300); CALCIUM 7.6 mg/dL (8.5-10.1); CARBON DIOXIDE 28.8 mmol/L (21.0-32.0); CHLORIDE - SERUM 105 mmol/L (98-107); CREATININE - SERUM 0.6 mg/dL (0.6-1.3); GLUCOSE 87 mg/dL (74-106); MAGNESIUM - SERUM 1.9 mg/dL (1.8-2.4); PHOSPHOROUS 4.3 mg/dL (2.5-4.9); POTASSIUM - SERUM 4.5 mmol/L (3.5-5.1); SODIUM 139 mmol/L (136-145); eGFR NON AFRICAN AMERICAN > 90 mL/min (90-120)
[2017-05-10 06:06] LABS: UREA NITROGEN 6 mg/dL (7-18)
[2017-05-10 08:38] VITALS: BP 146/88
[2017-05-10 12:38] VITALS: BP 149/90
[2017-05-10 16:16] VITALS: BP 145/86
[2017-05-10 23:01] VITALS: BP 145/68
[2017-05-11 01:52] VITALS: BP 140/68
[2017-05-11 04:46] VITALS: BP 102/67; BP 141/72
[2017-05-11 05:05] LABS: BASOPHILS 0.7 % (0-2); EOSINOPHILS 5.5 % (0-7); HEMATOCRIT 27.5 % (36.0-48.0); HEMOGLOBIN 8.8 g/dL (12-16); IMMATURE GRANULOCYTES 0.6 % (0-5); LYMPHOCYTES 27.9 % (15-50); MCH 29.7 pg (26.0-34.0); MCV 92.9 fL (80.0-100.0); MONOCYTES 9.2 % (2-11); NEUTROPHILS 56.1 % (40-80); PLATELET COUNT 323 10x3/uL (130-400); RBC 2.96 10x6/uL (4.00-5.40); WBC 5.5 10x3/uL (4.8-10.8)
[2017-05-11 05:12] LABS: CALC OSMOLALITY 273 mosm/kg (275-300); CALCIUM 7.6 mg/dL (8.5-10.1); CARBON DIOXIDE 29.3 mmol/L (21.0-32.0); CHLORIDE - SERUM 105 mmol/L (98-107); CREATININE - SERUM 0.6 mg/dL (0.6-1.3); GLUCOSE 83 mg/dL (74-106); POTASSIUM - SERUM 4.7 mmol/L (3.5-5.1); SODIUM 139 mmol/L (136-145); UREA NITROGEN 5 mg/dL (7-18); eGFR NON AFRICAN AMERICAN > 90 mL/min (90-120)
[2017-05-11 08:42] VITALS: BP 156/84
[2017-05-11 11:26] VITALS: BP 142/76
[2017-05-11] MEDS ORDERED: HYDROXYZINE HCL10 MG PO (16:02)
[2017-05-11] MEDS ORDERED: LOVENOX40 MG/0.4 SC (16:02)
[2017-05-11] MEDS ORDERED: DILAUDID INJ2 MG/ML IV (16:02)
[2017-05-11] MEDS ORDERED: IPRAT-ALBUT 0.5-3 ML UPD (16:02)
[2017-05-11] MEDS ORDERED: PEPCID INJ20 MG/2 ML IV (16:03)
[2017-05-11] MEDS ORDERED: Chloraseptic Spray [ TOPICAL (16:03)
[2017-05-11] MEDS ORDERED: MILK OF MAGNESI30 ML PO (16:03)
[2017-05-11] MEDS ORDERED: FLORAJEN3 CAPS460 MG PO (16:03)
[2017-05-11] MEDS ORDERED: ONDANSETRON4 MG/2 M3 IV (16:03)
[2017-05-11] MEDS ORDERED: NYSTATIN1 PWD TOPICAL (16:04)
[2017-05-11] MEDS ORDERED: CALMOSEPTINE OI71 GM TOPICAL (16:04)
[2017-05-11 16:10] VITALS: BP 150/83
== END 2017-05-11 18:00 | DRG 335 ==
LOC: D.RAD 08:51 → D.ER 08:51 → D.MS 15:47 → D.ICU 15:47 → D.SDCHOLD 15:47 → D.MS 15:58 → D.ICU 04-27 23:02 → D.MS 05-05 22:02
PROVIDERS: Emergency Medicine; Family Medicine; Internal Medicine Gastroenterology; Internal Medicine Pulmonary Disease; Surgery; ADMIT Family Medicine
PROC: 0DB58ZX Excision of Esophagus, Via Natural or Artificial Opening Endoscopic, Diagnostic (ICD-10-PCS; principal; 2017-04-22 16:00)
PROC: 0DNW0ZZ Release Peritoneum, Open Approach (ICD-10-PCS; 2017-04-27)
PROC: 5A1955Z Respiratory Ventilation, Greater than 96 Consecutive Hours (ICD-10-PCS; 2017-04-30)
DX: K56.51 Intestinal adhesions [bands], with partial obstruction (principal); J15.6 Pneumonia due to other Gram-negative bacteria; J95.822 Acute and chronic postprocedural respiratory failure; E43 Unspecified severe protein-calorie malnutrition; R53.2 Functional quadriplegia; A04.72 Enterocolitis due to Clostridium difficile, not specified as recurrent; N39.0 Urinary tract infection, site not specified; R11.2 Nausea with vomiting, unspecified; R63.4 Abnormal weight loss; Z68.29 Body mass index [BMI] 29.0-29.9, adult; I10 Essential (primary) hypertension; E83.52 Hypercalcemia; R13.10 Dysphagia, unspecified; K29.70 Gastritis, unspecified, without bleeding; Y83.9 Surgical procedure, unspecified as the cause of abnormal reaction of the patient, or of later complication, without mention of misadventure at the time of the procedure; B96.5 Pseudomonas (aeruginosa) (mallei) (pseudomallei) as the cause of diseases classified elsewhere; I95.9 Hypotension, unspecified

== ENCOUNTER 2017-05-11 17:25 | Inpatient (IN) | payer MEDICARE, OTHER ==
[~2017-05-11] VITALS: Ht 162.6 cm; Wt 102.1 kg
[~2017-05-11 17:25] MED LIST: CALMOSEPTINE OI71 GM TOPICAL; Chloraseptic Spray [ TOPICAL; DILAUDID INJ2 MG/ML IV; FLORAJEN3 CAPS460 MG PO; GABAPENTIN100 MG PO; GLYCOLAX527 GM PO; HYDROXYZINE HCL10 MG PO; IPRAT-ALBUT 0.5-3 ML UPD; KLOR-CON M2020 MEQ PO; LEVOTHYROXINE50 MCG PO; LOVENOX40 MG/0.4 SC; MILK OF MAGNESI30 ML PO; NYSTATIN1 PWD TOPICAL; ONDANSETRON4 MG/2 M3 IV; PEPCID INJ20 MG/2 ML IV; PEPCID40 MG PO; PROZAC20 MG PO; TOPAMAX25 MG PO; ZOFRAN ODT4 MG/UDTAB PO
[2017-05-11 18:32] VITALS: BP 145/68; BMI 38.7
--- NOTE | 2017-05-11 19:25 | NUR ---
SHIFT HANDOFF COMPLETE. PATIENT REQUESTED TEMP OF ROOM BE INCREASED AND THERMOSTAT SETTING WAS CHANGED APROPRIATELY. PROVIDED PATIENT WITH FRESH WATER. SHE DENIES FURTHER NEEDS.
--- NOTE | 2017-05-11 20:00 | NUR ---
REMAINS AWAKE. REPORT ROOM TEMP NOW COMFORTABLE.
--- NOTE | 2017-05-11 21:55 | NUR ---
RESTING IN BED, EYES CLOSED.
[2017-05-11 23:05] VITALS: BP 136/87
--- NOTE | 2017-05-11 23:05 | NUR ---
ASSESSMENT AND HS MEDS COMPLETE. CLEANSED PATIENT FROM SMALL DARK INCONTINENT BM WHICH WAS RELATIVELY DRY. PATIENT WAS UNAWARE SHE HAD HAD IT. PERFORMED NATION CATH CARE A RESULT. APPLIED SCHEDULED NYSTATIN PWD TO ABD FOLDS. AREA WAS BARELY PINK WITH NO BROKEN SKIN. PATIENT REFUSED SCHEDULED MOM DUE TO ONGOING LOOSE STOOLS. SAID SHE HAD BEEN TOLD IN ACUTE CARE THE ORDER WOULD NOT BE CONTINUED. WILL REFER THIS TO DR. PÉREZ TOMORROW. APPLIED CALMOSEPTINE TO CENTRAL BUTTOCKS WHICH IS SLIGHTLY RED, BUT EASILY BLANCHABLE. CHANGED MIDLIN ABDOMINAL DRESSING. LONG CLIPPED ABDOMINAL INCISION IS C/D/I AND FULLY APPROXIMATED. NO REDNESS OR DRAINAGE NOTED.
--- NOTE | 2017-05-12 02:00 | NUR ---
RESTING IN BED, EYES CLOSED. NO EVIDENT DISTRESS.
--- NOTE | 2017-05-12 04:45 | NUR ---
EMPTIED 1800 ML FROM NATION DRAINAGE BAG. FELIPA PROCEED TO DRAW BLOOD FOR LABS SHORTLY.
--- NOTE | 2017-05-12 05:35 | NUR ---
RESTING IN BED, EYES CLOSED. BLOOD WAS DRAWN FROM BLUE PORT OF RIGHT TLIJ. PORTS HAVE BEEN FLUSHED.
[2017-05-12 06:11] LABS: BASOPHILS 0.6 % (0-2); EOSINOPHILS 6.6 % (0-7); HEMATOCRIT 27.4 % (36.0-48.0); HEMOGLOBIN 8.7 g/dL (12-16); IMMATURE GRANULOCYTES 0.6 % (0-5); MCH 29.7 pg (26.0-34.0); MCHC 31.8 g/dL (31.0-37.0); MCV 93.5 fL (80.0-100.0); MEAN PLATELET VOLUME 10.1 fL (7.4-10.4); NEUTROPHILS 54.2 % (40-80); PLATELET COUNT 342 10x3/uL (130-400); RBC 2.93 10x6/uL (4.00-5.40); RDW 15.3 % (11.5-14.5); WBC 5.2 10x3/uL (4.8-10.8)
[2017-05-12 06:34] LABS: CALC OSMOLALITY 274 mosm/kg (275-300); CALCIUM 7.9 mg/dL (8.5-10.1); CARBON DIOXIDE 27.5 mmol/L (21.0-32.0); CHLORIDE - SERUM 105 mmol/L (98-107); CREATININE - SERUM 0.6 mg/dL (0.6-1.3); GLUCOSE 80 mg/dL (74-106); POTASSIUM - SERUM 4.3 mmol/L (3.5-5.1); SODIUM 140 mmol/L (136-145); UREA NITROGEN 5 mg/dL (7-18); eGFR NON AFRICAN AMERICAN > 90 mL/min (90-120)
--- NOTE | 2017-05-12 08:15 | NUR ---
PT RESTING IN BED WITH EYES OPEN EATING BREAKFAST TOLERATING WELL WILL MONITER
[2017-05-12 08:18] VITALS: BP 132/76
[2017-05-12 11:09] VITALS: Ht 162.6 cm; Wt 102.1 kg
--- NOTE | 2017-05-12 16:19 | NUR ---
CARE TEAM MEETING: PATIENT NEW TO UNIT AND WILL BE RA AT NEXT MEETING. WILL CONTINUE TO FOLLOW WITH PATIENT
--- NOTE | 2017-05-12 17:50 | NUR ---
PT RESTING IN BED WITH EYES OPEN CALL LIGHT IN REACH NO PROBLEMS WILL MONITER
--- NOTE | 2017-05-12 19:14 | NUR ---
PM ROUNDS MADE, PT RESTING WITH EYES CLOSED, RESP QUIET, NO DISTRESS NOTED, LEFT UNDISTURBED AT THIS TIME, BED IN LOW POSITION, SIDE RAILS X 3, CALL LIGHT IN REACH, BED ALARM ON AND WORKING PROPERLY
[2017-05-12 20:15] VITALS: BP 127/60
--- NOTE | 2017-05-12 20:15 | NUR ---
PT RESTING WITH EYES CLOSED, AROUSES TO SOFT VERBAL STIMULATION, VS OBTAINED, RIGHT IJ INTACT WITH NO REDNESS OR EDEMA AT SITE, BACK SIDE OF TEGADERM LOOSE, SECURED WITH PAPER TAPE, NATION CATH INTACT, EMPTIED 1100 MLS OF DARK YELLOW URINE FROM NATION, PT HAD LARGE STICKY DARK BM, PT CLEANED UP WITH WET WIPES, NATION CARE DONE, BLUE CHUX CHANGED, NYSTATIN ADM TO FOLDS OF ABD, ABD DRESSING CDI WITH NO DRAINAGE NOTED, SPOKE TO TANNER BARRETO RN REGARDING DRESSING CHANGE, REPORTS TO NOT CHANGE AT THIS TIME SINCE DRESSING WAS CHANGED EARLIER AND DRESSING IS CDI WITH NO DRAIANGE, PT C/O ABD PAIN, REQUESTS PAIN MED WHEN I COME BACK WITH 9:00 MEDS, INFORMED PT THAT I WILL, PT DENIES FURTHER NEEDS AT THIS TIME, BED IN LOW POSITION, SIDE RAILS X3, CALL LIGHT IN REACH, BED ALARM ON AND WORKING PROPERLY
--- NOTE | 2017-05-12 21:23 | NUR ---
PT AWAKE, SERVED H20, INFORMED PT THAT I WILL BE IN SHORTLY TO ADM MEDS, PT VERBALIZES UNDERSTANDING
--- NOTE | 2017-05-12 22:01 | NUR ---
PT RESTING WITH EYES CLOSED, AROUSES TO SOFT VERBAL STIMULATION, ADM 2100 MEDS, SEE EMAR, RIGHT IJ PORTS FLUSHED, ADM DILAUDID, DILUTED, SIVP, IJ LINE FLUSHED AFTER ADM OF MED, PT CHECKED, NO BM NOTED AT THIS TIME, WARM BLANKET PLACED ON PT, PT DENIES FURTHER NEEDS, BED IN LOW POSITION, SIDE RAILS X 3, CALL LIGHT IN REACH, BED ALARM ON AND WORKING PROPERLY
--- NOTE | 2017-05-13 00:20 | NUR ---
PT RESTING WITH EYES CLOSED, RESP QUIET, NO DISTRESS NOTED, LEFT UNDISTURBED AT THIS TIME, BED IN LOW POSITION, SIDE RAILS X 3, CALL LIGHT IN REACH, BED ALARM ON AND WORKING PROPERLY
--- NOTE | 2017-05-13 02:18 | NUR ---
PT AWAKE, PLAYING ON TABLET, DENIES NEEDS OR PAIN AT THIS TIME, BED IN LOW POSITION, SIDE RAILS X 2, CALL LIGHT IN REACH, BED ALARM ON AND WORKING PROPERLY
--- NOTE | 2017-05-13 05:32 | NUR ---
PT RESTING WITH EYES CLOSED, AROUSES TO SOFT VERBAL STIMULATION, ADM 0600 MED AND FLUSHED RIGHT IJ, SEE EMAR, NATION CATH EMPTIED, BED IS WET, PT CLEANED UP WITH WET WARM WIPES, CALMOSEPTINE APPLIED TO BUTTOCK, COMPLETE BED CHANGED, PT DENIES FURTHER NEEDS AT THIS TIME
--- NOTE | 2017-05-13 06:10 | NUR ---
RESP IN ROOM FOR TREATMENT
--- NOTE | 2017-05-13 07:30 | NUR ---
LYING IN BED EYES CLOSED RESTING. APPROPRIATE RISE AND FALL OF CHEST. NO S/SX OF RESPIRATORY DISTRESS. NATION FREE OF KINKS AND IS PATENT. CALL LIGHT AND WATER WITHIN REACH, BED LOW, ALARM ON, SR X3. WILL CONTINUE TO MONITOR
[2017-05-13 08:00] VITALS: BP 119/59
--- NOTE | 2017-05-13 09:46 | NUR ---
PERFORMED INCONTIENCE CARE D/T LARGE BOWEL INCONTINENCE. VERY LOOSE AND DARK BROWN IN COLOR WITHOUT ODOR. CHANGE BED LINENS AND GOWN. DENIES ANY OTHER NEEDS. CALL LIGHT AND WATER WITHIN REACH, BED LOW AND ALARM ON. SR X3. WILL CONTINUE TO MONITOR
--- NOTE | 2017-05-13 11:14 | NUR ---
LYING IN BED RESTING, CHECKED PT FOR INCONTINENCE, FREE OF ANY INCONTIENCE AT THIS TIME. BED LINENS DRY AND CLEAN. NATION PATENT AND FREE OF KINKS. CALL LIGHT AND PERSONAL ITEMS WITHIN REACH, BED LOW AND ALARM ON. WILL CONTINUE TO MONITOR
--- NOTE | 2017-05-13 14:26 | NUR ---
REMOVED 44 JACEK FROM ABDOMINAL INCISION, CLEANSED WITH HIBICLENS, APPLIED SKIN BARRIER AND STERISTRIPS. PT TOLERATE WELL. WILL CONTINUE TO MONITOR
--- NOTE | 2017-05-13 14:30 | NUR ---
STARTED BLADDER TRAINING Q2H. PT WAS EDUCATED ON BLADDER TRAINING. NO CONCERNS VOICED.
--- NOTE | 2017-05-13 16:00 | NUR ---
RESTING QUIETLY.CL IN REACH.
--- NOTE | 2017-05-13 16:44 | NUR ---
REMOVED NATION BEFORE 24 HOUR BLADDER TRAINING WAS FINISHED D/T NATION LEAKING CONTINUOUSLY THROUGHOUT THE DAY. PT COULD FEEL PRESSURE WHEN SHE NEEDED TO USE RESTROOM AND THE BED WOULD BE SOILED IN URINE INCONTINENCE. THIS WAS HAPPENING EVEN BEFORE BLADDER TRAINING STARTED. WILL CONTINUE TO MONITOR OUTPUT
--- NOTE | 2017-05-13 17:40 | NUR ---
SITTING UP IN W/C EATING DINNER. DENIES ANY NEEDS. NO S/SX OF ACUTE DISTRESS. CALL LIGHT WITHIN REACH, W/C BRAKES LOCKED. WILL CONTINUE TO MONITOR
--- NOTE | 2017-05-13 19:30 | NUR ---
RESIDENT RESTING IN BED NO C/O PAIN OR DISCOMFORT NOTED.
--- NOTE | 2017-05-13 19:46 | NUR ---
PT. IN BED WITH HOB UP FOR COMFORT AND IS WATCHING TV. DAUGHTER PRESENT AND THEY ARE AWAITING THE ARRIVAL OF MORE FAMILY FROM OUT OF STATE FOR A VISIT. NO VOICED NEEDS AND HER CALL LIGHT IS WITHIN REACH.
--- NOTE | 2017-05-13 20:00 | NUR ---
REQUESTED PRN PAIN MEDICATION STATED PAIN WAS AT AN 8, MEDICATION GIVEN PER MAR WITH POSITIVE RESULTS.
[2017-05-13 21:14] VITALS: BP 107/63
--- NOTE | 2017-05-13 23:18 | NUR ---
RESTING IN BED EYES CLOSED NO S/S OF PAIN OR DISCOMFORT NOTED.
--- NOTE | 2017-05-14 06:49 | NUR ---
PRN HYDROMORPHONE GIVEN PER AUG, 2047 GIVEN PER THALIA BARRETO.
--- NOTE | 2017-05-14 06:53 | NUR ---
RESTING IN BED STATED LOP WAS @ 9 PRN PAIN MEDICATION GIVEN PER ORDRS. GIVEN PER THALIA BARRETO
--- NOTE | 2017-05-14 07:33 | NUR ---
RESTING QUIETLY IN BED. CALL LIGHT IN REACH. BED IN LOWEST POSITION.
[2017-05-14 07:46] LABS: BASOPHILS 1.6 % (0-2); EOSINOPHILS 8.3 % (0-7); HEMATOCRIT 28.7 % (36.0-48.0); HEMOGLOBIN 9.3 g/dL (12-16); IMMATURE GRANULOCYTES 0.5 % (0-5); LYMPHOCYTES 30.1 % (15-50); MCH 30.1 pg (26.0-34.0); MCHC 32.4 g/dL (31.0-37.0); MCV 92.9 fL (80.0-100.0); MEAN PLATELET VOLUME 10.3 fL (7.4-10.4); MONOCYTES 16.6 % (2-11); NEUTROPHILS 42.9 % (40-80); PLATELET COUNT 323 10x3/uL (130-400); RBC 3.09 10x6/uL (4.00-5.40); RDW 15.5 % (11.5-14.5); WBC 3.9 10x3/uL (4.8-10.8)
[2017-05-14 07:49] LABS: CALC OSMOLALITY 273 mosm/kg (275-300); CARBON DIOXIDE 24.4 mmol/L (21.0-32.0); CHLORIDE - SERUM 105 mmol/L (98-107); CREATININE - SERUM 0.7 mg/dL (0.6-1.3); GLUCOSE 75 mg/dL (74-106); POTASSIUM - SERUM 3.9 mmol/L (3.5-5.1); SODIUM 139 mmol/L (136-145); UREA NITROGEN 4 mg/dL (7-18); eGFR NON AFRICAN AMERICAN 86 mL/min (90-120)
[2017-05-14 08:01] VITALS: BP 132/73
--- NOTE | 2017-05-14 08:56 | NUR ---
PATIENT IS ALERT/ORIENT X4. PRN PAIN MEDICATION GIVEN PER PATIENT REQUEST. NURSE ASST GETTING READY TO HELP PATIENT WITH SHOWER THIS AM.
--- NOTE | 2017-05-14 09:55 | NUR ---
PATIENT REMAINS IN CONTACT ISOLATION FOR C-DIFF. IN REHAB ROOM. WORKING WITH PHYSICAL THERAIPST. ISOLATION PRECAUSION TAKEN
--- NOTE | 2017-05-14 11:38 | NUR ---
ABDOMENAL INCISION OPEN TO AIR. STERI STRIPES INTACT. NO DRAINAGE, NO REDNESS OR SWELLING ABROUND INCISION SITE.
--- NOTE | 2017-05-14 14:20 | NUR ---
PRN ZOFRAN GIVEN FOR NAUSEA AND VOMMITING.
--- NOTE | 2017-05-14 16:00 | NUR ---
RIGHT JUGULAR PICC LINE DRESSING FALLING OFF. NO DATE NOTED ON DRESSING. THIS NURSE CHANGED PICC LINE DRESSING ACCORDING HOSPITAL POLICY.
--- NOTE | 2017-05-14 19:25 | NUR ---
SHIFT HANDOFF EARLIER COMPLETED. GAVE PATIENT HER MENU TO COMPLETE. REMOVED HER DINNER TRAY. DENIES CURRENT NEEDS.
--- NOTE | 2017-05-14 20:40 | NUR ---
RESTING QUIETLY IN BED, EYES CLOSED.
[2017-05-14 20:50] VITALS: BP 116/66
--- NOTE | 2017-05-14 21:55 | NUR ---
ASSESSMENT AND HS MEDS COMPLETE. DENIES CURRENT NEEDS.
--- NOTE | 2017-05-15 00:05 | NUR ---
IN BED, EYES CLOSED. APPEARS COMFORTABLE.
--- NOTE | 2017-05-15 02:40 | NUR ---
CONTINUES IN BED, EYES CLOSED. NO APPARENT DISCOMFORT.
--- NOTE | 2017-05-15 04:45 | NUR ---
RESTING QUIETLY, EYES CLOSED. RESPIRATIONS ARE UNLABORED.
--- NOTE | 2017-05-15 06:25 | NUR ---
GAVE PATIENT SCHEDULED SYNTHROID AND FLUSHED ALL 3 PORTS OF HER RIGHT IJ CVL. ASSISTED HER UP TO BR COMMODE WHERE SHE URINATED AND HAD A MEDIUM VOLUME LOOSE BM. THEN ASSISTED HER TO CLEANSE FROM VERY LARGE URINE INCONTINENCE WHILE SLEEPING. CHANGED HER SCRUB TOP, AND DONNED A FRESH SCRUB BRIEF. CHANGED ALL TOP LINENS AND PINK BED PAD DUE TO PRIOR INCONTINENCE MENTIONED ABOVE. PATIENT NOW BACK IN BED.
--- NOTE | 2017-05-15 07:33 | NUR ---
LYING IN BED EYES CLOSED RESTING. APPROPRIATE RISE AND FALL OF CHEST. NO S/SX OF ACUTE DISTRESS. CALL LIGHT AND WATER WITHIN REACH, BED LOW AND ALARM ON. WILL CONTINUE TO MONITOR
[2017-05-15 08:04] VITALS: BP 116/74
--- NOTE | 2017-05-15 09:28 | NUR ---
IN THERAPY GYM WITH [facility]. ADMINISTERED MORNING MEDS WHOLE WITHOUT DIFFICULTY. NO S/SX OF ACUTE DISTRESS. WILL CONTINUE TO MONITOR
--- NOTE | 2017-05-15 12:54 | NUR ---
SITTING UP IN BED EATING LUNCH. DENIES ANY NEEDS OR PAIN. CALL LIGHT AND WATER WITHIN REACH, BED LOW AND ALARM ON. WILL CONTINUE TO MONITOR
--- NOTE | 2017-05-15 15:27 | NUR ---
LYING IN BED WATCHING TV. DENIES ANY NEEDS OR PAIN. CALL LIGHT AND PERSONAL ITEMS WITHIN REACH, BED LOW AND ALARM ON. WILL CONTINUE TO MONITOR
--- NOTE | 2017-05-15 18:28 | NUR ---
SITTING UP IN BED WATCHING TV. DENIES ANY NEEDS. CALL LIGHT AND PERSONAL ITEMS WITHIN REACH, BED LOW AND ALARM ON. WILL CONTINUE TO MONITOR
--- NOTE | 2017-05-15 19:50 | NUR ---
DAUGHTER TALKS TO PT AT BEDSIDE.
--- NOTE | 2017-05-15 22:45 | NUR ---
ASSISTED PT TO BATHROOM AND BACK TO BED.
[2017-05-15 23:47] VITALS: BP 133/76
--- NOTE | 2017-05-16 01:05 | NUR ---
LAYING IN BED WITH EYES OPEN AND PLAYING ON TABLET. NO S/S OF DISTRESS OBSERVED. TRIPLE LUMEN IJ TO RIGHT SIDE OF NECK. CHECKED FOR PATENCY EARLIER. CALL LIGHT AND OVERBED TABLE IN REACH,
--- NOTE | 2017-05-16 01:12 | NUR ---
REST IN BED, CALL LIGHT IN REACH.
--- NOTE | 2017-05-16 02:52 | NUR ---
REST IN BED, EYE CLOSE, CALL LIGHT IN REACH.
--- NOTE | 2017-05-16 08:45 | NUR ---
PT AM MEDS ADMINISTERED. PT STATES SHE HAS SPILLED CRANBERRY JUICE ALL OVER HER AND WOULD LIKE A SHOWER. WCTM.
--- NOTE | 2017-05-16 09:03 | NUR ---
AID CURRENTLY ASSISTING PT WITH SHOWER.
--- NOTE | 2017-05-16 10:10 | NUR ---
PT BACK IN BED. PT REQ AND REC'D PRN PAIN MEDICATION. WCTM.
[2017-05-16 12:11] VITALS: BP 127/64
--- NOTE | 2017-05-16 12:11 | NUR ---
PT EATING LUNCH, DENIES NEEDS. WCTM.
--- NOTE | 2017-05-16 14:29 | NUR ---
PT ASSISTED TO BR. PT HAD MED BM. PT SITTING UP IN WC AT THIS TIME AND DENIES FURTHER NEEDS. WCTM.
--- NOTE | 2017-05-16 20:10 | NUR ---
ASSISTED PT TO BATHROOM AND BACK TO BED.
[2017-05-16 23:53] VITALS: BP 134/77
--- NOTE | 2017-05-17 02:02 | NUR ---
REST IN BED, CALL LIGHT IN REACH.
--- NOTE | 2017-05-17 03:11 | NUR ---
RESTING IN BED WITH EYES CLOSED. NO S/S OF DISTRESS OBSERVED. TRIPLE LUMEN IJ TO RIGHT SIDE OF NECK PATENT. BED ALARM IN PLACE AND FUNCTIONAL.
[2017-05-17 06:15] LABS: BASOPHILS 0.6 % (0-2); EOSINOPHILS 8.4 % (0-7); HEMATOCRIT 29.2 % (36.0-48.0); HEMOGLOBIN 9.2 g/dL (12-16); IMMATURE GRANULOCYTES 0.4 % (0-5); LYMPHOCYTES 31.7 % (15-50); MCH 29.5 pg (26.0-34.0); MCHC 31.5 g/dL (31.0-37.0); MCV 93.6 fL (80.0-100.0); MEAN PLATELET VOLUME 10.7 fL (7.4-10.4); MONOCYTES 13.6 % (2-11); NEUTROPHILS 45.3 % (40-80); PLATELET COUNT 284 10x3/uL (130-400); RBC 3.12 10x6/uL (4.00-5.40); RDW 15.6 % (11.5-14.5); WBC 4.8 10x3/uL (4.8-10.8)
[2017-05-17 06:34] LABS: CALC OSMOLALITY 276 mosm/kg (275-300); CALCIUM 8.1 mg/dL (8.5-10.1); CARBON DIOXIDE 26.4 mmol/L (21.0-32.0); CHLORIDE - SERUM 105 mmol/L (98-107); CREATININE - SERUM 0.6 mg/dL (0.6-1.3); GLUCOSE 79 mg/dL (74-106); POTASSIUM - SERUM 3.2 mmol/L (3.5-5.1); SODIUM 141 mmol/L (136-145); UREA NITROGEN 3 mg/dL (7-18); eGFR NON AFRICAN AMERICAN > 90 mL/min (90-120)
[2017-05-17 07:29] VITALS: BP 113/55
--- NOTE | 2017-05-17 08:00 | NUR ---
PATIENT REMAINS IN CONTACT ISOLATION FOR C-DIFF. ALERT/ORIENT X4. USING CALL LIGHT FOR NEEDS. CALL LIGHT WITHIN REACH.
--- NOTE | 2017-05-17 09:03 | NUR ---
PRN POTASSIUM GIVEN FOR ELECTROLITE PROTOCHOL FOR K LEVEL OF 3.2. LAB TO BE DRAWN AT 1300.
--- NOTE | 2017-05-17 09:18 | NUR ---
DR. Guerita PÉREZ INTO SEE PATIENT. NEW ORDERS RECIEVED
--- NOTE | 2017-05-17 11:24 | NUR ---
DRESSING CHANGED TO LOWER MIDLINE ABDOMEN. VERY SMALL AMOUNT OF YELLOW DRAINAGE TO DRESSING. STERI STRIPES IN PLACE. NO SWELLING OR REDNESS NOTED.
--- NOTE | 2017-05-17 11:56 | NUR ---
PRN DILAUDID GIVEN FOR MIDLINE ABDOMENAL PAIN
--- NOTE | 2017-05-17 14:08 | NUR ---
BLOOD DRAWN FROM RIGHT IJ FOR POTASSIUM LEVEL
--- NOTE | 2017-05-17 16:03 | NUR ---
PATIENT HAS VISITORS IN ROOM. CONTACT ISOLATION PRECAUSIONS MAINTAINED
--- NOTE | 2017-05-17 18:36 | NUR ---
RESTING QUIETLY IN BED. CALL LIGHT IN REACH. BED IN LOWEST POSITION
--- NOTE | 2017-05-17 19:25 | NUR ---
PT. IN BED WITH HOB UP FOR COMFORT WITH EYES CLOSED AND RESP. EVEN. PT. AWAKENS EASILY FOR ASSESSMENT AND HAS NO VOICED NEEDS AT THIS TIME. CALL LIGHT WITHIN REACH.
[2017-05-17 20:41] VITALS: BP 144/76
--- NOTE | 2017-05-17 23:09 | NUR ---
PT. IN BED WITH HOB UP FOR COMFORT WITH EYES CLOSED AND RESP. EVEN. CALL LIGHT WITHIN REACH.
--- NOTE | 2017-05-18 03:35 | NUR ---
PT. IN BED WITH HOB UP FOR COMFORT WITH EYES CLOSED AND RESP. EVEN. CALL LIGHT WITHIN REACH.
--- NOTE | 2017-05-18 07:52 | NUR ---
SITTING UP IN BED EATING BREAKFAST. ALERT AND ORIENTED X4. C/O ABDOMINAL PAIN 01/28 REQUEST PAIN MEDICATION. WILL ADMINISTERED PER ORDER. CALL LIGHT AND PERSONAL ITEMS WITHIN REACH, BED LOW AND SR.X3. WILL CONTINUE TO MONITOR
[2017-05-18 07:56] VITALS: BP 143/66
--- NOTE | 2017-05-18 11:02 | NUR ---
Nutrition Follow Up: Pt stated that she was tired of the full liquid diet and was ready to try solid food. She requested a chicken salad sandwich and baked chips for lunch. MD has changed diet to regular. Pt is eating 15% on full liquid diet. +BM 05/17/17. Meds and labs noted. Rec continue regular diet as tolerated. Will continue to send Ensure TID. RD following.
--- NOTE | 2017-05-18 11:37 | NUR ---
PATIENT ADMITTED TO REHAB FROM ACUTE FLOOR. DR. ANJU PAREDES IS HER PCP. DME AT HOME: WALKER, WHEELCHAIR, SHOWER CHAIR, BEDSIDE COMMODE AND A CANE. SHE LIVES WITH HER DAUGHTER AND DISCHARGE PLANS ARE FOR HER TO RETURN HOME WITH HER DAUGHTER.WILL CONTINUE TO FOLLOW WITH PATIENT.
--- NOTE | 2017-05-18 13:41 | NUR ---
SITTING UP IN W/C READING. DENIES ANY NEEDS. CALL LIGHT AND PERSONAL ITEMS WITHIN REACH, W/C BRAKES LOCKED AND BOX ALARM ON. WILL CONTINUE TO MONITOR
--- NOTE | 2017-05-18 13:50 | NUR ---
IN ROOM WITH THERAPY.SHAN WELL.
--- NOTE | 2017-05-18 14:00 | RHP ---
PATIENT: NISH VIRAMONTES MEDICAL RECORD: [id number] ACCOUNT: [id number] LOCATION:[facility]1109 : 40 ADMISSION DATE: 05/11/17 REHABILITATION HISTORY AND PHYSICAL EXAMINATION POST ADMISSION PHYSICIAN EXAMINATION DATE OF ADMISSION TO THE REHAB: 05/11/2017. ADMITTING DIAGNOSIS: Diffuse myopathy. 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 She was admitted to the hospital on 04/21/2017 with persistent nausea and vomiting, found to have a small-bowel obstruction and underwent exploratory surgery on 04/27/2017. Postop, she developed hypoxic respiratory failure. She was intubated and remained on the ventilator from 04/28/2017 to 05/04/2017. She was in the ICU for 9 days. She developed diarrhea and the stool specimen was positive for CDT. She was placed in isolation, had been treated with p.o. vancomycin and also IV Flagyl for 10 days. Her urine was positive for pseudomonas and E. coli. She was treated with 10 days of IV Levaquin. Her NG tube has been removed and she is tolerating a full liquid diet at this time. Prior to admission, she lived with her daughter and was moderately independent with ADLs and mobility using a cane. Currently, she is moderate to max assist for ADLs and mobility. She is severely deconditioned with lower extremity and upper extremity proximal weakness. She is also moderate to max assist for ADLs with max assist for mobility using a rolling walker, gait belt assistance by PT. She is motivated to regain her strength, so she can return home and get back to her prior level of functioning. COMORBIDITIES: In this patient include enterocolitis secondary to CDT, sepsis, pneumonia, acute postprocedure respiratory failure, partial small-bowel obstruction, vomiting, left pleural effusion, hypovolemia, anemia, acute blood loss anemia, pseudomembranous colitis, unintentional weight loss, leukocytosis, electrolyte abnormalities, functional quadriplegia, severe protein-calorie malnutrition, bibasilar atelectasis, hypertension, debility, abdominal pain, diarrhea, fatigue, weakness, and deconditioning. PAST MEDICAL HISTORY: Significant for nothing in particular. PAST SURGICAL HISTORY: Included gastric bypass. ALLERGIES: PENICILLIN, SULFA, MORPHINE, DARVOCET, TYLENOL, and TALWIN. CURRENT MEDICATIONS: Include DuoNeb updrafts. She is on Synthroid 50 mcg daily. She is on Floranex 460 mg daily, Lovenox 40 mg subq daily. She is on an electrolyte protocol right now for placement of magnesium and also potassium. She is on Zofran 4 mg q.6 hours p.r.n., Nystatin powder topically t.i.d. p.r.n., Calmoseptine 1 application b.i.d., milk of mag 30 cc b.i.d., Atarax 10 mg q.6 hours p.r.n., Dilaudid 0.5 q.3 hours p.r.n., Pepcid 20 mg b.i.d., Chloraseptic spray as needed, and polyethylene glycol 17 grams in 8 ounces of water daily. HABITS: No alcohol or tobacco use. HISTORY AND PHYSICAL [id number] NISH VIRAMONTES FAMILY HISTORY: Noncontributory. SOCIAL HISTORY: The patient hopes to return back home with her daughter and get back to her prior level of functioning or better if possible. REVIEW OF SYSTEMS: GENERAL: Does complain of weakness. HEENT: Denies cold, cough, or congestion. CARDIOVASCULAR: Denies chest pain. PHYSICAL EXAMINATION: VITAL SIGNS: Stable, afebrile. GENERAL: An obese female in no distress upon exam. HEENT: Normocephalic and atraumatic. Mucosa moist. NECK: Supple. No lymphadenopathy. LUNGS: Clear at this time. HEART: Regular rate and rhythm. ABDOMEN: Benign. EXTREMITIES: No clubbing, cyanosis or edema. NEUROLOGIC: She does have noted weakness. LABORATORY DATA: Her white count is 5.2, H&H 8.7 and 27.4, and platelet count 342. Sodium 140, potassium 4.3, BUN and creatinine of 5 and 0.6, and blood sugar was noted to be 80. ASSESSMENT: This is a 76-year-old female patient admitted to the rehab with a working diagnosis of a diffuse myopathy secondary to prolonged stay in the ICU and on the ventilator. The patient has potential to make improvement. We instituted the following multidisciplinary therapies including to, but not limited to physical, occupational, respiratory, speech, nutritional services, prosthetics and orthotics. Given her complex condition and risk for more complications, rehabilitation services cannot be provided at a low level of care such as a penitentiary facility. PLAN: 1. Admit to [facility] rehab for intensive inpatient therapy to include the following disciplines: A. Physical therapy to improve gait, all transfer skills, and bed mobility to a modified independent level. B. Occupational therapy to improve activities of daily living to a modified independent level. C. Case management to assist with discharge planning and placement options. D. Nutrition to assist with nutritional needs. E. Rehabilitation nursing to assist in monitoring the patient's underlying medical conditions and to assist with any type of bowel or bladder management. 2. The patient's current medication and medical care will be continued. 3. The patient will be placed on standard fall precautions. 4. The patient's estimated length of stay is approximately 7-10 days. 5. Discuss this patient during care team staff meeting this week. 6. If she still continues to have diarrhea, we will treat this as needed. We will probably recheck a stool sample and UA to make sure that her pseudomonas UTI and her CDT have cleared up. TRANSINT:[id number] Voice Confirmation ID: [id number] DOCUMENT ID: [id number] HISTORY AND PHYSICAL [id number] NISH VIRAMONTES notes whether there has been none or any medical/functional change since admission: - No change since preadmission screen. SITA attests patient continues to be appropriate for IRF: - Continues to be appropriate. TONA PÉREZ MD at 1400 CC: [id number] DICTATION DATE: 05/12/17 0810 EXPLOITATION ANALYST: 05/12/[address] [facility] [address] [place] [address]
--- NOTE | 2017-05-18 15:38 | NUR ---
SITTING UP IN BED WORKING ON PUZZLE. DENIES ANY NEEDS OR PAIN. CALL LIGHT AND PERSONAL ITEMS WITHIN REACH, BED LOW AND SRX2. WILL CONTINUE TO MONITOR
--- NOTE | 2017-05-18 19:25 | NUR ---
BEDSIDE SHIFT REPORT COMPLETE. PATIENT HAS NO C/O AT THIS TIME.
--- NOTE | 2017-05-18 21:10 | NUR ---
CONTINUES IN BED, AWAKE. DAUGHTER VISITING AT BEDSIDE DRESSED IN GOWN AND GLOVES PER ENTERIC PRECAUTIONS.
[2017-05-18 21:45] VITALS: BP 148/86
--- NOTE | 2017-05-18 22:10 | NUR ---
ASSESSMENT AND HS MEDS COMPLETE. PATIENT WAS GIVEN DILAUDID 2MG PO FOR PAIN LEVEL OF 7/10 IN ABDOMINAL INCISION. DRESSING REMAINS C/D/I. DAUGHTER REMAINS AT BEDSIDE VISITING.
--- NOTE | 2017-05-18 23:50 | NUR ---
RESTING IN BED, EYES CLOSED.
--- NOTE | 2017-05-19 02:00 | NUR ---
RESTING QUIETLY IN BED IN APPARENT COMFORT, EYES CLOSED.
--- NOTE | 2017-05-19 04:15 | NUR ---
CONTINUES IN BED, EYES CLOSED. RESPIRATIONS ARE QUIET AND UNLABORED.
--- NOTE | 2017-05-19 06:15 | NUR ---
ANN BLOOD FOR LABS FROM [facility]. FLUSHED EACH PORT WITH 10ML NS. ALL REMAIN PATENT TO FLUSH AND BLOOD W/D. ASSISTED PATIENT UP TO BR TO URINATE. CLEANSED AND CHANGED PATIENT'S SCRUB TOP PULL-UP BRIEF AND PINK BED PAD DUE TO LARGE URINE INCONTINENCE DURING SLEEP. THEN RETURNED HER TO BED.
[2017-05-19 07:05] LABS: BASOPHILS 0.7 % (0-2); EOSINOPHILS 9.1 % (0-7); HEMATOCRIT 28.6 % (36.0-48.0); HEMOGLOBIN 9.2 g/dL (12-16); IMMATURE GRANULOCYTES 0.2 % (0-5); LYMPHOCYTES 34.7 % (15-50); MCH 30.2 pg (26.0-34.0); MCHC 32.2 g/dL (31.0-37.0); MCV 93.8 fL (80.0-100.0); MEAN PLATELET VOLUME 11.4 fL (7.4-10.4); MONOCYTES 17.6 % (2-11); NEUTROPHILS 37.7 % (40-80); PLATELET COUNT 234 10x3/uL (130-400); RBC 3.05 10x6/uL (4.00-5.40); RDW 15.8 % (11.5-14.5); WBC 4.5 10x3/uL (4.8-10.8)
[2017-05-19 07:27] LABS: CALC OSMOLALITY 273 mosm/kg (275-300); CALCIUM 7.7 mg/dL (8.5-10.1); CARBON DIOXIDE 27.2 mmol/L (21.0-32.0); CHLORIDE - SERUM 105 mmol/L (98-107); CREATININE - SERUM 0.6 mg/dL (0.6-1.3); GLUCOSE 75 mg/dL (74-106); POTASSIUM - SERUM 3.5 mmol/L (3.5-5.1); SODIUM 139 mmol/L (136-145); UREA NITROGEN 4 mg/dL (7-18); eGFR NON AFRICAN AMERICAN > 90 mL/min (90-120)
[2017-05-19 08:24] VITALS: BP 106/86
--- NOTE | 2017-05-19 09:30 | NUR ---
PT AM MEDS ADMINISTERED. PT REQ AND REC'D PRN PAIN MEDICATION AT THIS TIME. PT CURRENTLY IN THERAPY GYM, TOLERATING WELL. WCTM.
--- NOTE | 2017-05-19 12:15 | NUR ---
PT EATING LUNCH, DENIES NEEDS. WCTM.
--- NOTE | 2017-05-19 15:00 | NUR ---
CARE TEAM MEETING: PATIENT PROGRESSING IN THERAPY AND TENATIVE DISCHARGE DATE IS 05/28/17. PATIENT WILL BE RA AT NEXT MEETING. WILL CONTINUE TO FOLLOW WITH PATIENT.
--- NOTE | 2017-05-19 15:56 | NUR ---
PT REQ AND REC'D PRN PAIN MEDICATION. PT DENIES FURTHER NEEDS. WCTM.
--- NOTE | 2017-05-19 18:14 | NUR ---
PT CENTRAL LINE DRESSING CHANGED. PT TOLERATED WELL. WCTM.
--- NOTE | 2017-05-19 19:15 | NUR ---
PATIENT IN BED, AWAKE. DENIES CURRENT NEEDS. PICKED UP HER COMPLETED MENU FOR TOMORROW'S MEALS.
--- NOTE | 2017-05-19 20:35 | NUR ---
RESTING QUIETLY IN BED, EYES CLOSED.
[2017-05-19 22:35] VITALS: BP 144/84
--- NOTE | 2017-05-19 22:35 | NUR ---
ASSESSMENT AND HS MEDS COMPLETE. GAVE PATIENT DILAUDID 2MG PO FOR UPPER ABDOMEN INCISIONAL PAIN. ASSISTED HER UP TO BR COMMODE TO CHANGE BRIEF DUE TO URINE INCONTINENCE WHILE IN BED, WELL TRACE LOOSE BM.
--- NOTE | 2017-05-19 22:50 | NUR ---
RETURNED PATIENT TO BED AFTER SHE URINATED AND HAD A [id number] VOLUME, LOOSE UNFORMED BM IN COMMODE.
--- NOTE | 2017-05-20 00:15 | NUR ---
IN BED, EYES CLOSED. NO DISTRESS EVIDENT.
--- NOTE | 2017-05-20 01:55 | NUR ---
IN BED, EYES CLOSED. NO APPARENT DISCOMFORT.
--- NOTE | 2017-05-20 04:45 | NUR ---
RESTING IN BED, EYES CLOSED. RESPIRATIONS ARE UNLABORED.
--- NOTE | 2017-05-20 05:30 | NUR ---
REMAINS IN BED, EYES CLOSED.
[2017-05-20 08:16] VITALS: BP 139/71
--- NOTE | 2017-05-20 08:40 | NUR ---
PT AM MEDS ADMINISTERED. PT REQ AND REC'D PRN PAIN MEDICATION AT THIS TIME. PT RESTING IN BED, WCTM.
--- NOTE | 2017-05-20 09:20 | NUR ---
PT SHOWER GIVEN. PT ABD DRESSING REMOVED. NO DRAINAGE NOTED. STER STRIPS STILL INTACT. NO NEW DRESSING APPLIED. WCTM.
--- NOTE | 2017-05-20 12:34 | NUR ---
Nutrition Follow Up: Pt is eating 58% meal avg on a regular diet. +BM 05/20/17. Pt told this RD on 05/19/17 that she was tired of Ensure. Meds and labs reviewed. Rec continue current diet as tolerated. Will d/c Ensure. RD following.
--- NOTE | 2017-05-20 17:41 | NUR ---
PT SITTING UP IN BED EATING DINNER, DENIES NEEDS. WCTM.
[2017-05-20 19:00] VITALS: BP 140/73
--- NOTE | 2017-05-20 19:05 | NUR ---
BEDSIDE SHIFT REPORTING COMPLETE. PATIENT RESTING QUIETLY AT THIS TIME.
--- NOTE | 2017-05-20 20:05 | NUR ---
IN BED, EYES CLOSED. NO APPARENT DISCOMFORT.
--- NOTE | 2017-05-20 20:55 | NUR ---
ASSESSMENT AND HS MEDS COMPLETE. REFUSED CALMOSEPTINE AND NYSTATIN PWD. ASSISTED PATIENT UP TO BR COMMODE TO URINATE AND CHANGE HER PULL-UP DUE TO PRIOR INCONTINENCE, AND THEN BACK TO BED.
--- NOTE | 2017-05-20 22:50 | NUR ---
RESTING QUEITLY IN BED, EYES CLOSED.
--- NOTE | 2017-05-21 | NUR ---
REMAINS IN BED, EYES CLOSED. APPEARS COMFORTABLE.
--- NOTE | 2017-05-21 02:10 | NUR ---
CONTINUES IN BED, EYES CLOSED. APPEARS COMFORTABLE.
--- NOTE | 2017-05-21 04:45 | NUR ---
RESTING IN BED ON LEFT SIDE. RESPIRING QUIETLY.
--- NOTE | 2017-05-21 05:45 | NUR ---
OBTAINED BLOOD FROM [facility] AND FLUSHED ALL 3 PORTS WITH NS. GAVE PATIENT SCHEDULED SYNTHROID AND ASSISTED HER TUUP TO BR TO URINATE AND THERE CHANGED HER PULL-UP DUE TO PRIOR INCONTINENCE. NOW BACK IN BED.
[2017-05-21 06:21] LABS: HEMATOCRIT 29.5 % (36.0-48.0); HEMOGLOBIN 9.6 g/dL (12-16); LYMPHOCYTES 33.7 % (15-50); MCH 30.2 pg (26.0-34.0); MCHC 32.5 g/dL (31.0-37.0); MCV 92.8 fL (80.0-100.0); MEAN PLATELET VOLUME 11.4 fL (7.4-10.4); NEUTROPHILS 42.5 % (40-80); RBC 3.18 10x6/uL (4.00-5.40); RDW 16.2 % (11.5-14.5)
[2017-05-21 06:26] LABS: PLATELET COUNT 184 10x3/uL (130-400)
[2017-05-21 06:34] LABS: CALC OSMOLALITY 275 mosm/kg (275-300); CARBON DIOXIDE 26.5 mmol/L (21.0-32.0); CHLORIDE - SERUM 104 mmol/L (98-107); CREATININE - SERUM 0.6 mg/dL (0.6-1.3); GLUCOSE 80 mg/dL (74-106); POTASSIUM - SERUM 3.7 mmol/L (3.5-5.1); SODIUM 139 mmol/L (136-145); eGFR NON AFRICAN AMERICAN > 90 mL/min (90-120)
[2017-05-21 06:36] LABS: UREA NITROGEN 11 mg/dL (7-18)
--- NOTE | 2017-05-21 08:06 | NUR ---
PATIENT CONTINUES IN CONTACT ISOLATION. ALERT/ORIENTX4. USING CALL LIGHT FOR NEEDS. CALL LIGHT WITHIN REACH
[2017-05-21 08:59] VITALS: BP 128/68
--- NOTE | 2017-05-21 10:00 | NUR ---
PATIENT IN REHAB ROOM. WORKING WITH PHYSICAL THERAPIST. DENIES ANY PAIN/DISC AT THIS TIME. ISOLATION PRECAUSIONS MAINTAINED
--- NOTE | 2017-05-21 12:28 | NUR ---
PATIENT SITTING UP IN WHEELCHAIR IN ROOM EATTING LUNCH. TOLERATING REGULAR DIET WELL
--- NOTE | 2017-05-21 14:30 | NUR ---
PRN ZOFRAN GIVEN FOR NAUSEA/VOMITTING. PATIENT HAD EMISIES OF ABOUT 100CC UNDIGESTED FOOD.
--- NOTE | 2017-05-21 17:00 | NUR ---
PATIENT DENIES ANY NAUSEA AT THIS TIME. RESTING WELL.
--- NOTE | 2017-05-21 19:15 | NUR ---
PT. IN BED WITH HOB UP FOR COMFORT WITH EYES CLOSED AND RESP. EVEN. PT. AWAKENS EASILY FOR ASSESSMENT. NO VOICED NEEDS AT THIS TIME AND HER CALL LIGHT IS WITHIN REACH.
[2017-05-21 20:58] VITALS: BP 136/72
--- NOTE | 2017-05-21 23:08 | NUR ---
PT. IN BED WITH HOB UP FOR COMFORT LYING ON HER LEFT SIDE. EYES CLOSED AND RESP. EVEN. PT. HANDING STUFFED ANIMAL AND HER CALL LIGHT IS WITHIN REACH.
--- NOTE | 2017-05-22 03:07 | NUR ---
PT. IN BED WITH HOB UP FOR COMFORT AND IS LYING ON HER LEFT SIDE. EYES CLOSED AND RESP. EVEN. CALL LIGHT WITHIN REACH.
--- NOTE | 2017-05-22 03:08 | NUR ---
PT. IN BED WITH HOB UP FOR COMFORT AND IS LYING ON HER RIGHT SIDE. EYES CLOSED AND RESP. DEEP AND EVEN. CALL LIGHT WITHIN REACH.
--- NOTE | 2017-05-22 07:25 | NUR ---
SITTING UP IN BED READING BOOK. DENIES ANY NEEDS OR PAIN. ALERT AND ORIENTED X4. CALL LIGHT WITHIN REACH, BED LOW, SR X2. WILL CONTINUE TO MONITOR
[2017-05-22 08:00] VITALS: BP 132/71
--- NOTE | 2017-05-22 08:00 | NUR ---
IN BED.CL IN REACH.
--- NOTE | 2017-05-22 09:39 | NUR ---
ADMINISTERED MORNING MEDS WHOLE WITHOUT DIFFICULTY. ALERT AND ORIENTED X4. C/O SOME DISCOMFORT BUT TOLERABLE. DENIES ANY NEEDS. CALL LIGHT WITHIN REACH, BED LOW AND ALARM ON. WILL CONTINUE TO MONITOR
--- NOTE | 2017-05-22 12:54 | NUR ---
WORKING WITH [facility] [employer] [employer] IN ROOM. DENIES ANY NEEDS OR PAIN. NO S/SX OF ACUTE DISTRESS NOTED. WILL CONTINUE TO MONITOR
--- NOTE | 2017-05-22 14:50 | NUR ---
SITTING UP IN BED WATCHING TV. DENIES ANY NEEDS OR PAIN. NO S/SX OF ACUTE DISTRESS NOTED. CALL LIGHT AND PERSONAL ITEMS WITHIN REACH, BED LOW AND ALARM ON. WILL CONTINUE TO MONITOR
--- NOTE | 2017-05-22 19:15 | NUR ---
PT. IN BED WITH HOB UP FOR COMFORT AND DAUGHTER HERE TO VISIT. ASSESSMENT COMPLETED. PT. HAS NO VOICED NEEDS AT THIS TIME. CALL LIGHT WITHIN REACH.
[2017-05-22 20:05] VITALS: BP 118/54
--- NOTE | 2017-05-22 23:08 | NUR ---
PT. IN BED WITH HOB UP FOR COMFORT WITH EYES CLOSED AND RESP. DEEP AND EVEN. CALL LIGHT IS WITHIN REACH.
--- NOTE | 2017-05-23 01:17 | NUR ---
PT. IN BED WITH HOB UP FOR COMFORT AND STILL IS NOT FEELING WELL DUE TO HER STOMACH. PT. THEN HAD YELLOW COLORED EMESIS. PT. REQUESTING TO GO TO BR TO HAVE BM. TRANSFERRED PT. TO/FROM BR AND PT. HAD A LARGE BM. PT. WAS ALSO CLEANED UP IN THE BR AFTER THROWING UP ON HERSELF. COMPLETED BED LINEN CHANGE ALSO. PT. POSITIONED BACK TO BED FOR COMFORT WITH CALL LIGHT WITHIN REACH.
--- NOTE | 2017-05-23 03:08 | NUR ---
PT. IN BED WITH HOB UP FOR COMFORT AND IS LYING ON HER LEFT SIDE. EYES CLOSED AND RESP. EVEN. CALL LIGHT IS WITHIN REACH.
--- NOTE | 2017-05-23 08:03 | NUR ---
PATIENT REMAINS IN CONTACT ISOLATION FOR C-DIFF. ALERT/ORIENT X4. USING CALL LIGHT FOR NEEDS. CALL LIGHT WITHIN REACH. SITTING UP IN WHEELCHAIR AT BEDSIDE TO EAT BREAKFAST.
[2017-05-23 08:27] VITALS: BP 140/58
--- NOTE | 2017-05-23 19:25 | NUR ---
PT. IN BED WITH HOB UP FOR COMFORT AND IS WATCHING TV. ASSESSMENT COMPLETED. NO VOICED NEEDS AT THIS TIME AND HER CALL LIGHT IS WITHIN REACH.
[2017-05-23 19:50] VITALS: BP 115/72
--- NOTE | 2017-05-23 23:20 | NUR ---
PT. IN BED WITH HOB UP FOR COMFORT AND IS LYING ON HER LEFT SIDE. EYES CLOSED AND RESP. EVEN. CALL LIGHT WITHIN REACH.
--- NOTE | 2017-05-24 03:15 | NUR ---
PT. IN BED WITH HOB UP FOR COMFORT AND IS LYING ON HER LEFT SIDE. EYES CLOSED AND RESP. EVEN. CALL LIGHT WITHIN REACH.
[2017-05-24 04:54] LABS: BASOPHILS 0.4 % (0-2); HEMATOCRIT 29.7 % (36.0-48.0); HEMOGLOBIN 9.5 g/dL (12-16); IMMATURE GRANULOCYTES 0.2 % (0-5); LYMPHOCYTES 33.1 % (15-50); MCH 29.6 pg (26.0-34.0); MCV 92.5 fL (80.0-100.0); MEAN PLATELET VOLUME 11.6 fL (7.4-10.4); MONOCYTES 14.7 % (2-11); NEUTROPHILS 45.6 % (40-80); PLATELET COUNT 192 10x3/uL (130-400); RBC 3.21 10x6/uL (4.00-5.40); RDW 15.3 % (11.5-14.5); WBC 5.4 10x3/uL (4.8-10.8)
[2017-05-24 05:14] LABS: CALC OSMOLALITY 271 mosm/kg (275-300); CALCIUM 7.8 mg/dL (8.5-10.1); CARBON DIOXIDE 27.2 mmol/L (21.0-32.0); CHLORIDE - SERUM 103 mmol/L (98-107); CREATININE - SERUM 0.5 mg/dL (0.6-1.3); GLUCOSE 81 mg/dL (74-106); POTASSIUM - SERUM 3.6 mmol/L (3.5-5.1); SODIUM 136 mmol/L (136-145); UREA NITROGEN 14 mg/dL (7-18); eGFR NON AFRICAN AMERICAN > 90 mL/min (90-120)
[2017-05-24 07:58] VITALS: BP 125/63
--- NOTE | 2017-05-24 08:00 | NUR ---
AM ROUNDING: PATIENT REMAINS IN CONTACT ISOLATION. C-DIFF. ALERT/ORIENT X4. CALL LIGHT WITHIN REACH. VOICES NO NEEDS AT THIS TIME
--- NOTE | 2017-05-24 09:29 | NUR ---
PRN DILUDID GIVNE FOR ABDOMINAL PAIN/DISC PER PATIENT REQUEST
--- NOTE | 2017-05-24 11:30 | NUR ---
PATIENT IN REHAB ROOM. WORKING WITH PHYSICAL THERAPIST. DENIES ANY PAIN/DISC AT THIS TIME.
--- NOTE | 2017-05-24 15:15 | NUR ---
PATIENT IS A STANDBY ASST WITH WHEELED WALKER INTO BATHROOM. PATIENT ABLE TO DO OWN CRISTIAN CARE.
--- NOTE | 2017-05-24 16:54 | NUR ---
PATIENT RESTING WELL IN BED. DENIES ANY PAIN/DISC AT THIS TIME
[2017-05-24 19:30] VITALS: BP 121/84
--- NOTE | 2017-05-24 20:00 | NUR ---
PT IN BED WITH HOB UP FOR COMFORT. WATCHING TV. CONTACT ISOLATION FOR CDIFF. ALERT & ORIENTED. STANDBY ASSIST WITH A WALKER. INCONTINENT AT TIMES. NO O2. RIGHT IJ TRIPLE LUMEN. BED IN LOWEST POSITION AND CALL LIGHT WITHIN REACH.
--- NOTE | 2017-05-24 20:39 | NUR ---
RIGHT IJ TRIPLE LUMEN BLUE DOES NOT FLUSH OR DRAW BACK. RED AND WHITE FLUSHES EASILY AND HAS DRAW BACK.
--- NOTE | 2017-05-24 20:55 | NUR ---
PT DONE WITH DIALYSIS. DIALYSIS NURSE STATED TO ME "WE GOT THREE AND A HALF LITERS OFF." PT IS STABLE AND AWAKE, ALERT & ORIENTED.
--- NOTE | 2017-05-24 23:04 | NUR ---
REMAINS IN ISOLATION D/T C-DIFF. REMAINS ASYMPTOMATIC. RIGHT IJ WITH TRIPLE LUMEN INTACT AND CHECKED FOR PATENCY. INCISION TO STERNAL AREA OF CHEST SCABBED OVER. NO REDNESS OR DRAINAGE OBSERVED. INCONTINENT OF BLADDER. PERICARE PROVIDED NEEDED. CALL LIGHT AND OVERBED TABL3E IN REACH.
--- NOTE | 2017-05-25 | NUR ---
PT IN BED WITH HOB UP FOR COMFORT. PLAYING ON CELLPHONE. BED IN LOWEST POSITION AND CALL LIGHT WITHIN REACH.
--- NOTE | 2017-05-25 02:01 | NUR ---
EMESIS X2, BILE COLOR. ZOFRAN GIVEN. WILL CONTINUE TO MONTIOR PT.
--- NOTE | 2017-05-25 02:05 | NUR ---
PT STATES "IM FEELING A LITTLE BIT BETTER." GAVE PT SOME SALTINE CRACKERS. PT STATED SHE DOES NOT WANT A LEMON SHOALWATER SODA.
--- NOTE | 2017-05-25 06:05 | NUR ---
ASKED PT HOW SHE WAS FEELING. PT STATED THAT SHE "DOES NOT FEEL SICK ANYMORE."
--- NOTE | 2017-05-25 07:11 | NUR ---
INTRODUCED SELF TO PT, PT STATES NO NEEDS AT THIS TIME, WILL CONTINUE TO MONITOR, CALL LIGHT WITHIN REACH.
--- NOTE | 2017-05-25 07:59 | NUR ---
EATING BREAKFAST IN ROOM. DENIES NEEDS. CALL LIGHT IN REACH
[2017-05-25 08:00] VITALS: BP 116/68
--- NOTE | 2017-05-25 09:15 | NUR ---
PATIENT STATES PAIN AT A 8 IN LOWER ABDOMEN, ALSO COMPLAINED OF NAUSEA, ZOFRAN GIVEN, MORNING MEDICATION ALSO GIVEN, PT TOLERATED WELL, WILL CONTINUE TO MONITOR, CALL LIGHT WITHIN REACH.
--- NOTE | 2017-05-25 10:15 | NUR ---
PT RESTING IN BED, RESPIRATIONS EVEN, WILL CONTINUE TO MONITOR, CALL LIGHT WITHIN REACH.
--- NOTE | 2017-05-25 10:52 | NUR ---
Nutrition Follow Up: Pt was in therapy at the time of RD visit. Interview deferred. Per chart pt with some nausea. Pt is eating 52% meal avg on a regular diet. +BM 05/24/17. Meds and labs reviewed. Rec continue current diet. Will continue to honor food preferences. RD following.
--- NOTE | 2017-05-25 12:04 | NUR ---
PT STATES NAUSEATED, ZOFRAN GIVEN, PT TOLERATED WELL, WILL CONTINUE TO MONITOR, CALL LIGHT WITHIN REACH.
--- NOTE | 2017-05-25 12:57 | NUR ---
PT RESTING IN BED, PT STATES NO NEEDS AT THIS TIME, WILL CONTINUE TO MONITOR, CALL LIGHT WITHIN REACH.
--- NOTE | 2017-05-25 14:29 | NUR ---
PT RESTING IN BED QUIETLY, RESPIRATIONS EVEN, WILL CONTINUE TO MONITOR, CALL LIGHT WITHIN REACH.
--- NOTE | 2017-05-25 15:59 | NUR ---
PT STATES PAIN IN LOWER ABDOMEN, INCISION SITE, PAIN AT A 8, PAIN MEDICATION GIVEN, PT TOLERATED WELL, WILL CONTINUE TO MONITOR. CALL LIGHT WITHIN REACH.
--- NOTE | 2017-05-25 17:41 | NUR ---
PT ONLY ATE JELL[employer] FOR DINNER, PT STATES NAUSEATED, ZOFRAN GIVEN, WILL CONTINUE TO MONITOR, CALL LIGHT WITHIN REACH.
--- NOTE | 2017-05-25 17:56 | NUR ---
ASSISTED PT TO RESTROOM AND BACK TO BED VIA WALKER, PT TOLERATED WELL, WILL CONTINUE TO MONITOR, CALL LIGHT WITHIN REACH.
--- NOTE | 2017-05-25 19:05 | NUR ---
BEDSIDE SHIFT REPORT COMPLETE. PATIENT DENIES CURRENT NEEDS.
--- NOTE | 2017-05-25 20:00 | NUR ---
AIN BED, RESTING QUIETLY, EYES CLOSED.
[2017-05-25 21:25] VITALS: BP 120/49
--- NOTE | 2017-05-25 21:25 | NUR ---
ASSESSMENT AND HS MEDS COMPLETE. GAVE PATIENT TYLENOL 650MG PO FOR PAIN LEVEL OF 5/10 IN LOWER ABDOMINAL INCISION.
--- NOTE | 2017-05-25 22:30 | NUR ---
RESTING QUIETLY IN BED, EYES CLOSED.
--- NOTE | 2017-05-25 23:35 | NUR ---
CONTINUES IN BED, EYES CLOSED. APPEARS COMFORTABLE.
--- NOTE | 2017-05-26 02:05 | NUR ---
PATIENT CALLED TO C/O COUGHING. THINKS IT IS DUE TO REFLUX. ELEVATED HER HOB TO 45 DEGREES AND HAD HER DRINK A FEW SIPS OF WATER TO RINSE HER THROAT. RECOMMENDED TO HER THAT SHE LEAVE HER HOB UP TO REDUCE THE CHANCE OF REFLUX.
--- NOTE | 2017-05-26 04:35 | NUR ---
CONTINUES IN BED, EYES CLOSED. RESPIRATIONS UNLABORED.
--- NOTE | 2017-05-26 06:00 | NUR ---
GAVE PATIENT SCHEDULED PO MED AND FLUSHED RIGHT TLIJ CVL. ASSISTED HER UP TO BR TO URINATE AND CHANGED HER BRIEF, AND THEN BACK TO BED.
[2017-05-26 08:00] VITALS: BP 122/55
--- NOTE | 2017-05-26 08:28 | NUR ---
PT SITTING UP EATING BREAKFAST. PT AM MEDS ADMINISTERED. PT REQ AND REC'D PRN PAIN MEDICATION AT THIS TIME. WCTM.
--- NOTE | 2017-05-26 11:58 | NUR ---
PT SITTING UP IN CHAIR IN ROOM WAITING FOR LUNCH, DENIES NEEDS. WCTM.
--- NOTE | 2017-05-26 15:15 | NUR ---
CARE TEAM MEETING: DAUGHTER ATTENDED MEETING QUESTIONS ANSWERED. WOULD LIKE REFERRAL SENT TO [facility]. REFRRAL WILL BE SENT. TENATIVE DISCHARGE DATE IS 05/28/17. WILL CONTINUE TO FOLLOW WITH PATIENT
--- NOTE | 2017-05-26 16:46 | NUR ---
referral faxed to [facility]. WITH CONFORMATION RECIEVED
--- NOTE | 2017-05-26 17:00 | NUR ---
PT REQ AND REC'D PRN PAIN MED AT THIS TIME. CENTRAL LINE DRESSING CHANGED. STERILE PRECAUTIONS FOLLOWED. PT TOLERATED WELL. WCTM.
--- NOTE | 2017-05-26 19:01 | NUR ---
PT RESTING IN BED, DENIES NEEDS. WCTM.
--- NOTE | 2017-05-26 19:30 | NUR ---
BEDSIDE SHIFT REPORT COMPLETE. DENIES CURRENT NEEDS.
--- NOTE | 2017-05-26 21:05 | NUR ---
SITTING UP ON BEDSIDE. ASKED FOR 2 JEMELO'S WHEN I BRING HER HS MEDS LATER.
[2017-05-26 22:15] VITALS: BP 133/76
--- NOTE | 2017-05-26 22:15 | NUR ---
ASSESSMENT AND HS MEDS COMPLETE. GAVE HER TYELNOL 650MG PO FOR LOWER ABDOMEN INCISION PAIN OF LEVEL 6/10. ASSISTED HER UP TO BR TO CHANGED HER BRIEF AND PUT ON NIGHT GOWN, THEN RETURNED HER TO BED.
--- NOTE | 2017-05-27 | NUR ---
RESTING IN BED ON LEFT SIDE, EYES CLOSED. NO EVIDENT DISTRESS.
--- NOTE | 2017-05-27 02:25 | NUR ---
IN BED, EYES CLOSED. CONTINUES RESTING ON LEFT SIDE.
--- NOTE | 2017-05-27 04:00 | NUR ---
IN BED, EYES CLOSED. RESPIRATIONS ARE UNLABORED.
--- NOTE | 2017-05-27 06:15 | NUR ---
GAVE PATIENT SCHEDULED PO MED AND FLUSHED RIGHT TLIJ CVL. WILL RETURN TO ASSIST HER TO BR WHEN HER R/T UPDRAFT IS COMPLETE.
--- NOTE | 2017-05-27 09:15 | NUR ---
PT AM MEDS ADMINISTERED. PT REQ AND REC'D PRN PAIN MEDICATION AT THIS TIME. WCTM.
--- NOTE | 2017-05-27 19:20 | NUR ---
BEDSIDE SHIFT REPORT COMPLETE. PATIENT DENIES NEEDS.
--- NOTE | 2017-05-27 20:10 | NUR ---
SITTING UP ON BEDSIDE. DENIES NEEDS.
[2017-05-27 22:10] VITALS: BP 141/74
--- NOTE | 2017-05-27 22:10 | NUR ---
ASSESSMENT AND HS MEDS COMPLETE. GAVE PATIENT DILAUDID 2MG PO FOR PAIN LEVEL OF 7/10 IN MID ABDOMINAL INCISION. DENIES FURTHER NEEDS.
--- NOTE | 2017-05-27 23:45 | NUR ---
RESTING IN BED ON LEFT SIDE. NO EVIDENT DISCOMFORT.
--- NOTE | 2017-05-28 02:35 | NUR ---
PATIENT IN BED, RESTING QUIETLY, CURRENTLY TURNING FROM LEFT SIDE TO BACK.
--- NOTE | 2017-05-28 03:05 | NUR ---
CALLED TO C/O HEADACHE PAIN OF LEVEL 6/10. GAVE HER TYLENOL 650MG PO AND ASSISTED HER UP TO BR COMMODE TO URINATE AND CHANGE WET PULL-UP. THEN RETURNED HER TO BED.
--- NOTE | 2017-05-28 04:30 | NUR ---
RESTING IN BED ON LEFT SIDE. RESPIRING QUIETLY.
--- NOTE | 2017-05-28 05:30 | NUR ---
BLOOD DRAWN FOR LABS FROM RIGHT TLIJ CVL. PORTS FLUSHED. GAVE PATIENT SCHEDULED SYNTHROID PO. DENIES NEEDS. SAYS HER HEADACHE IS GONE A RESULT OF TYLENOL GIVEN AROUND 0300.
[2017-05-28 06:37] LABS: BASOPHILS 0.2 % (0-2); EOSINOPHILS 4.1 % (0-7); HEMATOCRIT 29.6 % (36.0-48.0); HEMOGLOBIN 9.7 g/dL (12-16); IMMATURE GRANULOCYTES 0.2 % (0-5); LYMPHOCYTES 34.9 % (15-50); MCH 30.5 pg (26.0-34.0); MCHC 32.8 g/dL (31.0-37.0); MCV 93.1 fL (80.0-100.0); MEAN PLATELET VOLUME 11.7 fL (7.4-10.4); MONOCYTES 12.6 % (2-11); PLATELET COUNT 166 10x3/uL (130-400); RBC 3.18 10x6/uL (4.00-5.40); RDW 15.6 % (11.5-14.5); WBC 4.4 10x3/uL (4.8-10.8)
[2017-05-28 06:47] LABS: CALC OSMOLALITY 278 mosm/kg (275-300); CALCIUM 8.1 mg/dL (8.5-10.1); CARBON DIOXIDE 27.1 mmol/L (21.0-32.0); CHLORIDE - SERUM 105 mmol/L (98-107); CREATININE - SERUM 0.7 mg/dL (0.6-1.3); GLUCOSE 80 mg/dL (74-106); POTASSIUM - SERUM 3.3 mmol/L (3.5-5.1); SODIUM 139 mmol/L (136-145); UREA NITROGEN 18 mg/dL (7-18); eGFR NON AFRICAN AMERICAN 86 mL/min (90-120)
[2017-05-28 08:08] VITALS: BP 116/53
[2017-05-28] MEDS ORDERED: PROZAC20 MG PO (08:13)
[2017-05-28] MEDS ORDERED: HYDROXYZINE HCL10 MG PO (08:13)
[2017-05-28] MEDS ORDERED: DILAUDID2 MG PO (08:14)
[2017-05-28] MEDS ORDERED: PEPCID20 MG PO (08:15)
--- NOTE | 2017-05-28 08:15 | NUR ---
PT RESTING IN BED WITH EYES OPEN CALL LIGHT IN REACH WILL MONITER
--- NOTE | 2017-05-28 09:35 | NUR ---
PATIENT DISCHARGING TO [facility] [place] [facility] AND WILL TRANSPORT THERE VIA F[facility]ILITY [facility]. NO DME OR HOME HEALTH NEEDED AT THIS TIME. DR. CHARLES 06/17/17 @ 10:20, AN APPOINTMENT WITH DR. ANJU PAREDES WILL BE MADE AT TIME OF DISCHARGE FROM FACILITY. PATIENT CHOICE FORM FOR SNF AND [facility] FORM SIGNED, EXPLAINED AND FILED IN CHART.
--- NOTE | 2017-05-28 12:40 | NUR ---
PT DISCHARGED TO [facility] DISCHARGE SUMMARY AND MEDS AND DILAUDED PRESCRIPTION SENT WITH SENIOR ENGINEERING TECHNICIAN PT DISCHARGED VIA WHEELCHAIR TOLERATED WELL WILL MONITER
--- NOTE | 2017-07-29 14:37 | DS ---
PATIENT:NISH VIRAMONTES :40 MEDICAL RECORD: [id number] DISCHARGE SUMMARY ADMISSION DATE: 05/11/17 DISCHARGE DATE: 05/28/17 This is a discharge dated 05/28/2017 from inpatient rehab. PRIMARY DIAGNOSIS: Decreased functional ability and ability to provide activities of daily living secondary to diffuse myopathy. SECONDARY DIAGNOSES: 1. Protein-calorie malnutrition. 2. Hypertension. 3. Acute blood loss anemia. 4. Acute hypoxic respiratory failure. 5. Status post exploratory laparotomy. 6. Clostridium difficile colitis. 7. Hypothyroidism. 8. Hypokalemia. HOSPITAL COURSE: Full H&P is located elsewhere on the chart on this 76-year-old female who was admitted to inpatient rehab for physical therapy and occupational therapy to improve gait, transfer skills, bed mobility, and activities of daily living to a modified independent level. She was evaluated by PT and OT and their plans of care were followed. She required nursing home care for observation and assessment, medication administration, as well as wound care and monitoring of surgical incision. Electrolytes were managed by protocol. She remained on appropriate home medications. She was on DuoNebs for respiratory support. She initially had a Wong catheter and had bladder training with subsequent removal of the Wong catheter. She was cooperative with therapies, progressing towards goals. Case management was involved for discharge planning. She was considered stable for discharge on 05/28/2017. DISCHARGE MEDICATIONS: As per discharge medication reconciliation. DISCHARGE DISPOSITION: The patient is discharged to [facility]. She will continue her current diet and level of activity. She will continue with PT and OT in the rehab facility and will follow up with surgery as directed. Will follow up with primary care upon discharge from the rehabilitation facility. At least 30 minutes was spent in this discharge activity. TRANSINT:[id number] Voice Confirmation ID: [id number] DOCUMENT ID: [id number] Dictated By: GERARD MUELLER I have interviewed/examined the above patient and agree with these documented findings. DISCHARGE SUMMARY REPORT [id number] NISH VIRAMONTES SCOTT MD at 1802 at 1437 CC: [id number] DICTATION DATE: 07/25/17 1359 PRESS OPERATOR MEAT: 07/26/17 0143 DIS IN 05/28/17 [facility] [address] [place] [address]
== END 2017-05-28 13:21 | DRG 91 ==
LOC: D.REHAB 17:25
PROVIDERS: ADMIT Emergency Medicine
DX: G72.89 Other specified myopathies (principal); A41.9 Sepsis, unspecified organism; J18.9 Pneumonia, unspecified organism; J95.821 Acute postprocedural respiratory failure; E43 Unspecified severe protein-calorie malnutrition; R53.2 Functional quadriplegia; A04.72 Enterocolitis due to Clostridium difficile, not specified as recurrent; D62 Acute posthemorrhagic anemia; E86.1 Hypovolemia; R63.4 Abnormal weight loss; D72.829 Elevated white blood cell count, unspecified; I10 Essential (primary) hypertension; R53.81 Other malaise; R53.83 Other fatigue; R53.1 Weakness; E87.8 Other disorders of electrolyte and fluid balance, not elsewhere classified